=== PATIENT | female | born 1940 | race Caucasian/White ===

== ENCOUNTER → 2019-07-18 10:02 | Outpatient (BNVA) | payer MEDICARE, OTHER, SELFPAY | PROVIDERS: Family Provider Internal Medicine; Visit Provider Orthopaedic Surgery | DX: Z96.652 Presence of left artificial knee joint (principal) | CPT/HCPCS: 73560; 73565; L3924 ==

== ENCOUNTER 2019-07-18 15:09 | Outpatient (CLI) | payer MEDICARE, OTHER, SELFPAY | END 2019-07-18 15:10 | disposition home or self-care (01) | LOC: SPT 15:10 | PROVIDERS: Family Provider Internal Medicine; Visit Provider Orthopaedic Surgery | DX: Z76.89 Persons encountering health services in other specified circumstances (principal) | CPT/HCPCS: L3924 ==

== ENCOUNTER 2019-08-13 07:51 | Outpatient (CLI) | payer MEDICARE, OTHER, SELFPAY ==
[2019-08-13 08:25] LABS: Basophils % 0.7 %; Eosinophils # 0.1 10^3/uL (0.0-0.8); Eosinophils % 1.4 %; Hematocrit 40.8 % (37.0-47.0); Hemoglobin 12.9 g/dL (11.5-15.3); Lymphocytes # 1.6 10^3/uL (0.8-4.8); Mean Corpuscular HGB Conc 31.6 g/dL (30.0-36.0); Mean Corpuscular Hemoglobin 29.5 pg (28.0-34.0); Mean Corpuscular Volume 93.4 fL (81-99); Mean Platelet Volume 8.9 fL (7.4-10.4); Monocytes # 0.5 10^3/uL (0.2-0.9); Monocytes % 8.4 %; Neutrophils # 3.4 10^3/uL (1.8-7.7); Neutrophils % 60.8 %; Nucleated Red Blood Cells % 0 %; Platelet Count 365 10^3/cmm (130-400); Red Blood Count 4.37 10^6/uL (4.1-5.3); Red Cell Distribution Width 13.2 % (12.1-15.1); White Blood Count 5.6 10^3/uL (4.0-10.0)
[2019-08-13 08:51] LABS: Aspartate Amino Transferase 21 U/L (0-32); Blood Urea Nitrogen 14 mg/dL (8-23); Ferritin 27 ng/mL (15-150); Iron 84 ug/dL (37-145); Percent Saturation 40.5 % (20-50); Total Iron Binding Capacity 207 mcg/dl; Unsaturated Iron Binding 123 ug/dL (112-347)
== END 2019-08-13 07:52 | disposition home or self-care (01) ==
LOC: LAB 07:55
PROVIDERS: Family Provider Internal Medicine; PCP Internal Medicine; Visit Provider Specialist
DX: G70.00 Myasthenia gravis without (acute) exacerbation (principal); D50.9 Iron deficiency anemia, unspecified
CPT/HCPCS: 36415; 82565; 82728; 83540; 83550; 84450; 84520; 85025

== ENCOUNTER → 2019-08-20 08:02 | Outpatient (BNVA) | payer MEDICARE, OTHER, SELFPAY | PROVIDERS: Family Provider Internal Medicine; PCP Internal Medicine; Visit Provider Specialist | DX: G70.00 Myasthenia gravis without (acute) exacerbation (principal); R29.90 Unspecified symptoms and signs involving the nervous system | CPT/HCPCS: 99213 ==

== ENCOUNTER → 2019-12-31 08:20 | Outpatient (BNVA) | payer MEDICARE, OTHER, SELFPAY | PROVIDERS: Family Provider Internal Medicine; PCP Internal Medicine; Visit Provider Orthopaedic Surgery | DX: M85.862 Other specified disorders of bone density and structure, left lower leg (principal); M85.812 Other specified disorders of bone density and structure, left shoulder; M19.012 Primary osteoarthritis, left shoulder; Z96.612 Presence of left artificial shoulder joint; Z96.652 Presence of left artificial knee joint | CPT/HCPCS: 73030; 73560; 73565 ==

== ENCOUNTER 2020-02-11 07:41 | Outpatient (CLI) | payer MEDICARE, OTHER, SELFPAY ==
[2020-02-11 08:23] LABS: Basophils % 0.4 %; Eosinophils # 0.1 10^3/uL (0.0-0.8); Eosinophils % 1.1 %; Hemoglobin 13.3 g/dL (11.5-15.3); Lymphocytes # 1.3 10^3/uL (0.8-4.8); Mean Corpuscular HGB Conc 31.7 g/dL (30.0-36.0); Mean Corpuscular Hemoglobin 30.2 pg (28.0-34.0); Mean Corpuscular Volume 95.2 fL (81-99); Mean Platelet Volume 9.2 fL (7.4-10.4); Monocytes # 0.3 10^3/uL (0.2-0.9); Monocytes % 6.4 %; Neutrophils # 3.52 10^3/uL (1.8-7.7); Neutrophils % 66.7 %; Nucleated Red Blood Cells % 0 %; Platelet Count 336 10^3/cmm (130-400); Red Blood Count 4.41 10^6/uL (4.1-5.3); Red Cell Distribution Width 13.2 % (12.1-15.1); White Blood Count 5.3 10^3/uL (4.0-10.0)
[2020-02-11 08:57] LABS: Aspartate Amino Transferase 24 U/L (0-32); Blood Urea Nitrogen 18 mg/dL (8-23); Ferritin 31 ng/mL (15-150); Iron 69 ug/dL (37-145)
[2020-02-11 08:59] LABS: Alanine Aminotransferase 14 U/L (0-33); Albumin Level 4.3 g/dL (3.5-5.2); Alkaline Phosphatase 109 IU/L (35-105); Anion Gap 15.2 (5-19); Aspartate Amino Transferase 24 U/L (0-32); Blood Urea Nitrogen 18 mg/dL (8-23); Calcium 9.1 mg/dL (8.5-10.5); Carbon Dioxide 24 mmol/L (22-29); Chloride 105 mmol/L (98-107); Globulin 2.6 g/dL (1.3-4.6); Glucose 113 mg/dL (65-115); Osmolality Calculated 287 mOsm/kg (285-295); Potassium 4.2 mmol/L (3.5-5.1); Sodium 140 mmol/L (136-145); Total Bilirubin 0.4 mg/dL (0.15-1.2); Total Protein 6.9 g/dL (6.6-8.7)
== END 2020-02-11 07:42 | disposition home or self-care (01) ==
LOC: ONCMED 07:44
PROVIDERS: PCP Internal Medicine; Referring Provider Specialist; Visit Provider Internal Medicine Medical Oncology
DX: E83.110 Hereditary hemochromatosis (principal); G70.00 Myasthenia gravis without (acute) exacerbation; D50.9 Iron deficiency anemia, unspecified; E03.9 Hypothyroidism, unspecified; E78.00 Pure hypercholesterolemia, unspecified; I10 Essential (primary) hypertension; I25.10 Atherosclerotic heart disease of native coronary artery without angina pectoris; K21.9 Gastro-esophageal reflux disease without esophagitis
CPT/HCPCS: 36415; 80053; 82565; 82728; 83540; 84450; 84520; 85025

== ENCOUNTER 2020-02-14 05:47 | Outpatient (CLI) | payer MEDICARE, OTHER, SELFPAY ==
--- NOTE | 2020-02-16 16:46 | ONC FU_ITS ---
Dr. Lazo Patient Follow-Up Note Patient: Keysha Kearns Unit #: [id number]: 1940 Dicatated By: Ivan Lazo M.D.Date of Visit:Feb 14, 2020 Onc Med Follow-up/Prog Note Chief Complaint: Hemochromatosis. History of Present Illness: This is an 79 year-old woman with hereditary hemochromatosis. I had seen her initially in June 2007. 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 She was phlebotomized to a ferritin level of under 50. She had been monitored on observation following a phlebotomy in March 2009. She then restarted phlebotomies in November 2013 after her ferritin had abruptly increased to 399 ng/mL. As of 12/08/2016 the transferrin saturation had decreased to 13.3% with ferritin 22.6 ng/mL, and at that point I did stop her phlebotomies again. I had seen her for a follow-up visit on 11/17/2017. At that time she was significantly fatigued. Her transferrin saturation and ferritin were still consistent with iron deficiency, and I did have her start an oral iron supplement. As of 02/14/2016 her hemoglobin is back up to 14.6 g with transferrin saturation 33.2% and ferritin level 20.5 ng/mL, and she then stopped the iron supplement. Her other medical illnesses include hypertension, hypercholesterolemia, hypothyroidism, and GERD. In 2012 she developed severe shortness of breath and on evaluation she was found to have coronary artery disease. She underwent coronary artery bypass surgery and placement of permanent pacemaker. In July 2013 she was diagnosed with myasthenia gravis. She was treated with pyridostigmine and prednisone. She was intolerant of azathioprine. In January 2015 she underwent hemiarthroplasty of the left hip for a traumatic left femoral neck fracture. In June 2016 she was admitted to the hospital with aspiration pneumonia. She required intubation/mechanical ventilation. She was transferred to [facility] where she then underwent plasma exchange for the myasthenia. She eventually did recover. In September, she was seen in the emergency room with bleeding at the site of her PEG tube, which had been removed 3 weeks earlier. It resolved after surgical ligation. She then stopped taking aspirin. She continued CellCept for the myasthenia. INTERIM HISTORY: On 07/13/2018 she underwent left reverse total shoulder arthroplasty. She tolerated the procedure well. At her follow-up visit in July 2018, her transferrin saturation and ferritin levels remained in target range, and she continued on observation/expectant management. She is seen for a scheduled visit. She has been feeling pretty good generally. She walks every day in the morning, and she does housework. ECOG score is 1. She has good appetite. She has no fever or night sweats. She sometimes has shortness of breath. She has occasional cough which comes and goes. She says she has a little bit of chest pain at times. She has no GI or complaints. She has joint pain, mainly in the hips and legs. She does not complain of headache or dizziness. She has no focal neurologic symptoms. Medications: Acetaminophen 2 Tablet (of 325 mg) Oral PRN, AmLODIPine Besylate 1 (10 mg) Tablet Oral daily, Brimonidine Tartrate 1 drop(s) (of 0.2 %) Solution Ophthalmic b.i.d., Calcium 600/Vitamin D 1 (600-400 mg - Units) Tablet Oral daily, CellCept 2 (500 mg) Capsule Oral b.i.d., Furosemide 1 Tablet (of 20 mg) Oral daily PRN, Levothyroxine Sodium 25 mcg - Take 1 Tablet Oral daily, Metoprolol Tartrate 1 (25 mg) Tablet Oral b.i.d., Multivitamins 1 Capsule Oral daily, Potassium Chloride ER 1 Tablet (of 20 meq) Tablet, controlled release Oral daily PRN, Pravastatin Sodium 1 (80 mg) Tablet Oral daily, PriLOSEC 2 Tablet (of 20 mg) Oral every am, Singulair 1 (10 mg) Tablet Oral PRN Allergies: No Known Allergies. Review of Systems: Constitutional - She has been feeling good. She exercises daily and is able to do light house work. Her appetite is good and her weight is up about 4 pounds from last years visit. No fever, night sweats, or hot flashes. ECOG score is 1, ENMT - No sinus congestion/drainage. No mouth sores. No sore throat or difficulty swallowing, Hematologic/Lymphatic - No abnormal bruising or bleeding, Respiratory - She has occasional shortness of breath. She has an intermittent cough. No pleuritic pain or hemoptysis. She uses a CPAP at night, Cardiovascular - No angina pain. No palpitations, Gastrointestinal - No nausea or vomiting. No heartburn or acid reflux. No diarrhea or constipation. No blood in the stool or black stools, Genitourinary (F) - No dysuria or hematuria. No urinary frequency. No urgency or incontinence, Musculoskeletal - She has some arthritis pain in her hips and legs, Integumentary - No skin complications, Neurologic - No headache or dizziness. No numbness or tingling. No other focal neurologic symptoms, Psychiatric - No anxiety or depression. No insomnia. Vital Signs: Performed on Feb 14, 2020 10:49 Height - 62.00 in Weight - 171.0 lbs (HIGH) BSA - 1.79 sq.m BMI - 31.28 (HIGH) Temperature - 98.2 F (LOW) Pulse - 82 /min Respiration - 18 /min BP - 118/63 mm(hg) O2 Sat - 98 % Pain - 0 Fatigue - 2 Physical Examination: Constitutional - She looks pretty good generally, Eyes - Sclerae nonicteric. Conjunctivae clear, ENMT - No lesions noted in the oral cavity, Hematologic/Lymphatic - No cervical, clavicular, or axillary adenopathy, Respiratory - Lungs are clear with good air movement bilaterally, Cardiovascular - Heart rhythm is regular. There is no murmur, gallop, or rub noted, Abdomen - Soft. Liver and spleen are not enlarged. There is no abdominal mass or ascites noted and there is no inguinal adenopathy, Extremities - No edema, Neurologic - No focal neurologic deficits noted. Lab/Imaging: CBC shows hemoglobin 13.3 g, white blood cell count 5300, and platelet count 336,000. Comprehensive metabolic profile is unremarkable except for a minimally elevated alkaline phosphatase of 109/105 IU/L. Her serum iron is normal at 69 mcg/dL. The transferrin saturation was not reported. The ferritin level is in target range at 31 ng/mL. Impression: 1. Patient with hereditary hemochromatosis, confirmed by an HFE gene study to be homozygous for the C282Y mutation. She has been managed with phlebotomy. 2. In July 2013 she was found to have myasthenia gravis. She has been on immunosuppressive therapy. Her other medical illnesses include: 3. Hypertension. 4. Hyperlipidemia. 5. Coronary artery disease. 6. Hypothyroidism. 7. GERD. Her clinical course was further complicated by an episode of aspiration pneumonia in June 2016, requiring intubation/mechanical ventilation. She did show gradual recovery. As of her follow-up visit in November 2016 her transferrin saturation had declined to 13% with ferritin down to 22 ng/mL. At that point I had opted to just follow her on observation/expectant management. As of her follow-up visit in October 2017, she was more fatigued. Her transferrin saturation and ferritin were still in iron deficiency range, I did have her start an oral iron supplement. As of October 2017 she had actually become mildly anemic, and I did have her start on oral iron supplement. By January 2018 her hemoglobin was back up to 14.6 g with transferrin saturation 33.2% and ferritin 20.5 ng/mL. She has since then been followed on observation/expectant management. On 07/13/2017 show underwent left reverse total shoulder arthroplasty. She tolerated the procedure well, and she had an uneventful recovery. She then continued on observation/expectant management for the hemochromatosis. Thus far during follow-up her serum iron and serum ferritin levels have remained in target range, and her overall clinical status has remained stable. Plan: She remains on observation/expectant management. I will continue to recheck her CBC, serum iron studies, and ferritin in 6 months, I will just see her again in 1 year. Signed By: Ivan Lazo M.D. <<Signature on File>>
== END 2020-02-14 05:48 | disposition home or self-care (01) ==
PROVIDERS: PCP Internal Medicine; Visit Provider Internal Medicine Medical Oncology
DX: E83.110 Hereditary hemochromatosis (principal); G70.00 Myasthenia gravis without (acute) exacerbation; Z79.899 Other long term (current) drug therapy; I10 Essential (primary) hypertension; E78.5 Hyperlipidemia, unspecified; I25.10 Atherosclerotic heart disease of native coronary artery without angina pectoris; E03.9 Hypothyroidism, unspecified; K21.9 Gastro-esophageal reflux disease without esophagitis
CPT/HCPCS: G0463

== ENCOUNTER → 2020-02-19 08:17 | Outpatient (BNVA) | payer MEDICARE, OTHER, SELFPAY | PROVIDERS: PCP Internal Medicine; Visit Provider Specialist | DX: G70.00 Myasthenia gravis without (acute) exacerbation (principal); R29.90 Unspecified symptoms and signs involving the nervous system; G47.33 Obstructive sleep apnea (adult) (pediatric) | CPT/HCPCS: 99213 ==

== ENCOUNTER 2020-04-11 07:33 | Outpatient (CLI) | payer MEDICARE, OTHER, SELFPAY ==
--- NOTE | 2020-04-11 08:00 | MM_ITS ---
WS: [id number] Bilateral screening digital mammogram, 04/11/2020 Clinical Data: Routine Comparison: 02/05/2014, 11/27/2012, 11/04/2011, 09/15/2010, 08/27/2010, 06/06/2008, 05/26/2007. Findings: The breast parenchymal pattern shows fat replacement. No spiculated masses or clustered calcification s are seen. There are no secondary signs of carcinoma. MM/[id number] Impression: 1. Negative bilateral mammogram unchanged. 2. Recommend annual screening mammograms. BIRADS: 1-Negative FOLLOW UP: 1 Year Follow-up The CAD return checker was used.
== END 2020-04-11 07:34 | disposition home or self-care (01) ==
LOC: RADSHAW 07:36
PROVIDERS: PCP Internal Medicine; Visit Provider Specialist
DX: Z12.31 Encounter for screening mammogram for malignant neoplasm of breast (principal)
CPT/HCPCS: 77067

== ENCOUNTER → 2020-05-09 08:55 | Outpatient (BNVA) | payer MEDICARE, OTHER, SELFPAY | PROVIDERS: PCP Internal Medicine; Visit Provider Internal Medicine Cardiovascular Disease | DX: Z11.59 Encounter for screening for other viral diseases (principal); I48.11 Longstanding persistent atrial fibrillation; Z95.0 Presence of cardiac pacemaker | CPT/HCPCS: 87635 ==

== ENCOUNTER 2020-05-12 08:38 | Observation (INO) | payer MEDICARE, OTHER, SELFPAY ==
[2020-05-09 08:42] LABS: Basophils # 0.1 10^3/uL (0.0-0.1); Basophils % 0.9 %; Eosinophils # 0.1 10^3/uL (0.0-0.8); Eosinophils % 0.9 %; Hematocrit 43.3 % (37.0-47.0); Hemoglobin 13.8 g/dL (11.5-15.3); Lymphocytes # 1.8 10^3/uL (0.8-4.8); Lymphocytes % 33.4 %; Mean Corpuscular HGB Conc 31.9 g/dL (30.0-36.0); Mean Corpuscular Hemoglobin 30.2 pg (28.0-34.0); Mean Corpuscular Volume 94.7 fL (81-99); Mean Platelet Volume 9.5 fL (7.4-10.4); Monocytes # 0.5 10^3/uL (0.2-0.9); Monocytes % 9.1 %; Neutrophils # 3.02 10^3/uL (1.8-7.7); Neutrophils % 55.2 %; Nucleated Red Blood Cells % 0 %; Platelet Count 325 10^3/cmm (130-400); Red Blood Count 4.57 10^6/uL (4.1-5.3); Red Cell Distribution Width 13.2 % (12.1-15.1); White Blood Count 5.5 10^3/uL (4.0-10.0)
[2020-05-09 09:02] LABS: Anion Gap 16.8 (5-19); Blood Urea Nitrogen 20 mg/dL (8-23); Calcium 9.3 mg/dL (8.5-10.5); Carbon Dioxide 22 mmol/L (22-29); Chloride 106 mmol/L (98-107); Glucose 114 mg/dL (65-115); Osmolality Calculated 295 mOsm/kg (285-295); Potassium 3.8 mmol/L (3.5-5.1); Sodium 141 mmol/L (136-145)
[2020-05-09 09:18] LABS: INR 0.88 (0.83-1.21); Prothrombin Time (Patient) 12.2 Seconds (12.0-15.1)
[2020-05-12] VITALS (10 sets, daily range): BP systolic 98–146; BP diastolic 47–79; PULSE 65–71; RESP 14–25; TEMP 36.6–36.8; O2SAT 94–97; BMI 31.1
--- NOTE | 2020-05-12 07:04 | W.PM.OPSUD ---
Surgery/Procedure H&P Update DATE OF PROCEDURE: May 12, 2020 DATE H&P PERFORMED: 05/05/20 H&P UPDATE INFORMATION: I have reviewed H&P completed within last 30 days, I have examined patient prior to procedure and No changes to prior documentation PREOP DIAGNOSIS: Pacemaker TIFFANI PRIMARY INDICATION FOR PROCEDURE: Pacemaker TIFFANI PLANNED PROCEDURE: Operation Date: 05/12/20 07:00 Proposed Procedures p Pacemaker Generator Change 05400/Z45.01(Not Applicable) - Yair Odom MD PATIENT REASSESSED PRIOR TO SEDATION, WITH NO CHANGE NOTED: Yes PHYSICAL EXAM: alert, oriented x 3, clear to auscultation bilaterally and regular rate & rhythm AIRWAY EVAL/ANESTHESIA PLAN: normal airway, see other exam findings, ASA III, Monitored Anesthesia, Local Anesthesia, Risks, benefits & alternatives of sedation and/or procedure discussed and Patient agrees to continue as planned
--- NOTE | 2020-05-12 08:09 | PM.OP ---
Operative Report Date of procedure: May 12, 2020 Pre-op Diagnosis: Pacemaker TIFFANI Procedure: PROCEDURE: PACEMAKER REVISION PREOPERATIVE DIAGNOSIS: Pacemaker elective replacement indication. POSTOPERATIVE DIAGNOSIS: Pacemaker elective replacement indication. ESTIMATED BLOOD LOSS:none. COMPLICATIONS: None. BRIEF HISTORY: The patient is baseline artifacts, need to [id number] white female who had a permanent pacemaker implantation for symptomatic bradycardia. The patient was found to have elective replacement indication, during routine office followup evaluation. For further management of patient's condition for the symptomatic bradycardia, the patient required a pacemaker revision. Patient required a dual-chamber pacemaker for symptom relief and the need for AV synchrony The procedure was explained to the patient in detail with the risks and benefits. The risks of bleeding, hematoma, vascular injury, infection and other concomitant complications were explained in detail, which the patient understood well and consented to proceed. PROCEDURES PERFORMED: 1. Explantation of the old pacemaker generator. 2. Implantation of the new generator. The patient brought to the Cardiac Dry Starch Supervisor. The left side of the neck and the subclavian area were cleaned and draped in a sterile fashion. 1% Xylocaine was used for local anesthetic agent. A 2 inch long incision was made just below the previous pacemaker scar. By sharp and blunt dissection, the pacemaker pocket was accessed. The old generator was delivered from the pocket. The generator was detached from the lead. The new Medtronic generator was attached to the lead. The pacemaker pocket was copiously irrigated with vancomycin solution. Complete hemostasis was achieved. The lead was positioned behind the generator and the generator was attached to the pectoralis fascia by suturing with 0 Surgilon. Sponge counts were confirmed. The pacemaker pocket was closed in layers. Skin was approximated using 4-0 Vicryl. EXPLANTED DEVICE: Pacemaker Generator: Brand: Sensia Model number: [id number]. Serial number: [id number]. Date of implant: 11/30/2011 IMPLANTED DEVICES: Ventricular Lead: Date of implantation: 11/30/2011 Model number: [id number] Serial number: [id number] Make: Medtronic. Atrial lead Date of implantation: 11/30/2011 Model number: [id number] Serial number: [id number] Make: Medtronic. Implanted Generator: Date of implantation : 05/12/2020 Brand: AzureXT DR NAOMI Carrizales. Model number: [id number] Serial number: [id number] Make: Medtronic Stimulation Threshold: The ventricular sensing was not obtained because the patient is still dependent. Ventricular lead impedance was 380 ohms and the pacing threshold was 1.0 volts at 0.4 milliseconds. The atrial sensing was 2.5 millivolts. Atrial lead impedance was 513 ohms and the pacing threshold was 0.5 volts at 0.4 milliseconds. The pacemaker was set for DDDR mode with an upper rate of 130 and a lower rate of 60. A pressure dressing was applied over the pacemaker site. The patient was transferred back to medical floor in stable condition. Sponge counts were correct.
--- NOTE | 2020-05-12 09:33 | PC.CHAP ---
Pastoral Care Encounter/Spiritual Assessment Type of Contact [] Declined buggy operator visit [] Patient/Family/Request visit [] Outpatient visit [] Follow-up visit [] Physician referral [] Code/Alert [x] Routine visit [] Staff referral [] Actively dying [] Patient sleeping [] Family support [] [] Out of room [] Palliative care [] [] Receiving care in room [] Pre-surgical visit [] Trauma [] Long length of stay [] ICU visit [] Other: Relational/Emotional Strength [] Patient feels connected with others/family/visitors/staff [] Distress [] Loneliness/isolation [] Abandonment Spirituality of Patient [] Person of Ina [] Attends Jewish of their Ina [] Believes in Prayer [] Reads Bible or Sikh materials [] There are Spiritual issues to be addressed Elevator Technician Interventions [x] Prayer [x] Active listening [x] Non-anxious presence [x] Spiritual/emotional support [] Crisis/trauma care [] Spiritual counseling [] Bereavement support [] Provided bereavement packet [] Provided Bible/devotional materials [] Provided toy/stuffed animal, coloring book to patient or family member [] Provided Communion [] Anointing/[place] [] Salvation [x] Completed spiritual assessment [] Other: Impact on Illness or Injury [] Angry [] Fearful [] Anxious [] Often cries [] Exhaustion [] Unable to work [] Unable to attend moravian [] Unable to walk/stand [] Unable to read [] Unable to drive [] Unable to eat/drink [] Unable to sleep [] Unable to be with family [] Patient intubated [] Other: Summary battery replacement... feeling good Time spent with patient 10 min
--- NOTE | 2020-05-12 09:35 | PC.NURSE ---
Patient states she has already had her eye drops and her thyroid medicine this morning
[2020-05-12] MEDS: metoprolol tartrate 25 mg Tablet PO (17:25)
--- NOTE | 2020-05-12 19:27 | PC.NURSE ---
Rounding: PAtient up to chair alert and oriented arm in sling. Denies any needs at this time.
[2020-05-12] MEDS: atorvastatin 40 mg Tablet 20 MG PO (20:53)
[2020-05-13 05:21] VITALS: BP 149/65; PULSE 71; RESP 20; TEMP 36.6; O2SAT 98
--- NOTE | 2020-05-13 06:00 | ECG_ITS ---
[facility] Test Date: 2020-05-13 Pat Name: Keysha Kearns Department: Room: 112 Gender: Female Reconciliation Manager: : 1940 Requested By: Yair Odom Order Number: [id number] Gulshan MD: Vivian Kennedy M.D. Measurements Intervals [place] Rate: 69 P: 168 AL: 182 QRS: -4 QRSD: 188 T: 70 QT: 476 QTc: 513 Interpretive Statements ELECTRONIC ATRIAL PACEMAKER ELECTRONIC VENTRICULAR PACEMAKER Compared to ECG 05/15/2019 10:02:17 ST (T wave) deviation now present Myocardial infarct finding now present Electronically Signed On 05-13-2020 21:54:45 CUB REPORTER by Vivian Kennedy M.D. [id number]
[2020-05-13] MEDS: multivitamin therapeutic Tablet 1 TAB PO (07:44)
[2020-05-13] MEDS: levothyroxine 25 mcg Tablet PO (07:44)
[2020-05-13] MEDS: amlodipine 10 mg Tablet PO (07:44)
[2020-05-13] MEDS: metoprolol tartrate 25 mg Tablet PO (07:45)
[2020-05-13] MEDS: pantoprazole DR 40 mg Tablet PO (07:45)
[2020-05-13 08:00] VITALS: BP 122/54; PULSE 71; RESP 28; TEMP 36.6; O2SAT 97
[2020-05-13 09:05] VITALS: BP 122/54; PULSE 71; RESP 28; TEMP 36.6; O2SAT 97
--- NOTE | 2020-05-13 09:06 | PC.NURSE ---
Discharge instructions provided and discussed Including Follow-up appts, new medications, Post pacemaker care instructions. Pt declined to review sleep apnea and HTN carenotes at this time. All questions answered. Pacemker booklet and card given to pt. Pt discharge.
--- NOTE | 2020-05-13 09:18 | PC.NURSE ---
Pt to main entrance via W/C. All belongings with pt.
== END 2020-05-13 09:18 | disposition home or self-care (01) ==
LOC: CSU 08:38
PROVIDERS: Admitting Provider Internal Medicine Cardiovascular Disease; PCP Internal Medicine; Visit Provider Internal Medicine Cardiovascular Disease
DX: Z45.010 Encounter for checking and testing of cardiac pacemaker pulse generator [battery] (principal); I10 Essential (primary) hypertension; E78.2 Mixed hyperlipidemia; G47.33 Obstructive sleep apnea (adult) (pediatric); I25.10 Atherosclerotic heart disease of native coronary artery without angina pectoris
CPT/HCPCS: 12345; 33213; 36415; 80048; 85025; 85610; 86850; 86900; 93005; 96365; 97165; C1769; C1786; G0378; J0690; J2250; J3010; J7050; J7517

== ENCOUNTER 2020-08-18 08:16 | Outpatient (CLI) | payer MEDICARE, OTHER, SELFPAY ==
[2020-08-18 09:02] LABS: Basophils % 0.9 %; Eosinophils # 0.1 10^3/uL (0.0-0.8); Eosinophils % 1.2 %; Hematocrit 40.8 % (37.0-47.0); Hemoglobin 12.9 g/dL (11.5-15.3); Lymphocytes # 1.2 10^3/uL (0.8-4.8); Lymphocytes % 28.6 %; Mean Corpuscular HGB Conc 31.6 g/dL (30.0-36.0); Mean Corpuscular Hemoglobin 29.8 pg (28.0-34.0); Mean Corpuscular Volume 94.2 fL (81-99); Mean Platelet Volume 8.9 fL (7.4-10.4); Monocytes # 0.4 10^3/uL (0.2-0.9); Monocytes % 8.4 %; Neutrophils # 2.58 10^3/uL (1.8-7.7); Neutrophils % 60.4 %; Nucleated Red Blood Cells % 0 %; Platelet Count 322 10^3/cmm (130-400); Red Blood Count 4.33 10^6/uL (4.1-5.3); Red Cell Distribution Width 13.1 % (12.1-15.1); White Blood Count 4.3 10^3/uL (4.0-10.0)
[2020-08-18 09:18] LABS: Aspartate Amino Transferase 19 U/L (0-32); Blood Urea Nitrogen 11 mg/dL (8-23); Ferritin 26 ng/mL (15-150); Iron 72 ug/dL (37-145); Percent Saturation 34.4 % (20-50); Total Iron Binding Capacity 209 mcg/dl; Unsaturated Iron Binding 137 ug/dL (112-347)
== END 2020-08-18 08:17 | disposition home or self-care (01) ==
PROVIDERS: Absent Provider Specialist; PCP Internal Medicine; Visit Provider Internal Medicine Medical Oncology
DX: E83.110 Hereditary hemochromatosis (principal); G70.00 Myasthenia gravis without (acute) exacerbation; I48.11 Longstanding persistent atrial fibrillation
CPT/HCPCS: 82565; 82728; 83540; 83550; 84450; 84520; 85025

== ENCOUNTER → 2020-08-20 08:03 | Outpatient (BNVA) | payer MEDICARE, OTHER, SELFPAY | PROVIDERS: PCP Internal Medicine; Visit Provider Specialist | DX: G70.00 Myasthenia gravis without (acute) exacerbation (principal); D64.9 Anemia, unspecified | CPT/HCPCS: 99213; 99214 ==

== ENCOUNTER 2020-12-26 08:05 | Outpatient (CLI) | payer MEDICARE, OTHER, SELFPAY ==
[2020-12-26 08:47] LABS: Basophils % 0.8 %; Eosinophils # 0.1 10^3/uL (0.0-0.8); Eosinophils % 1.2 %; Hematocrit 41.5 % (37.0-47.0); Hemoglobin 13.2 g/dL (11.5-15.3); Lymphocytes # 1.4 10^3/uL (0.8-4.8); Lymphocytes % 27.2 %; Mean Corpuscular HGB Conc 31.8 g/dL (30.0-36.0); Mean Corpuscular Hemoglobin 29.5 pg (28.0-34.0); Mean Corpuscular Volume 92.8 fL (81-99); Mean Platelet Volume 9.2 fL (7.4-10.4); Monocytes # 0.4 10^3/uL (0.2-0.9); Monocytes % 6.9 %; Neutrophils # 3.19 10^3/uL (1.8-7.7); Neutrophils % 63.3 %; Nucleated Red Blood Cells % 0 %; Platelet Count 334 10^3/cmm (130-400); Red Blood Count 4.47 10^6/uL (4.1-5.3); Red Cell Distribution Width 13.1 % (12.1-15.1)
[2020-12-26 09:05] LABS: Aspartate Amino Transferase 19 U/L (0-32); Blood Urea Nitrogen 17 mg/dL (8-23); Ferritin 23 ng/mL (15-150); Iron 84 ug/dL (37-145); Percent Saturation 37.8 % (20-50); Total Iron Binding Capacity 222 mcg/dl; Unsaturated Iron Binding 138 ug/dL (112-347)
== END 2020-12-26 08:06 | disposition home or self-care (01) ==
LOC: LAB 08:12
PROVIDERS: PCP Internal Medicine; Visit Provider Specialist
DX: D64.9 Anemia, unspecified (principal); G70.00 Myasthenia gravis without (acute) exacerbation; I48.11 Longstanding persistent atrial fibrillation
CPT/HCPCS: 36415; 82565; 82728; 83540; 83550; 84450; 84520; 85025

== ENCOUNTER 2021-02-16 09:52 | Outpatient (CLI) | payer MEDICARE, OTHER, SELFPAY ==
[2021-02-16 11:00] LABS: Basophils # 0.1 10^3/uL (0.0-0.1); Basophils % 0.7 %; Eosinophils # 0.1 10^3/uL (0.0-0.8); Hematocrit 43.1 % (37.0-47.0); Hemoglobin 13.5 g/dL (11.5-15.3); Lymphocytes # 1.6 10^3/uL (0.8-4.8); Mean Corpuscular HGB Conc 31.3 g/dL (30.0-36.0); Mean Corpuscular Hemoglobin 29.5 pg (28.0-34.0); Mean Corpuscular Volume 94.3 fl (81-99); Monocytes # 0.5 10^3/uL (0.2-0.9); Neutrophils # 4.49 10^3/uL (1.8-7.7); Neutrophils % 66.6 %; Nucleated Red Blood Cells % 0 %; Platelet Count 349 10^3/cmm (130-400); Red Blood Count 4.57 10^6/uL (4.1-5.3); Red Cell Distribution Width 13.1 % (12.1-15.1); White Blood Count 6.8 10^3/uL (4.0-10.0)
[2021-02-16 11:31] LABS: Alanine Aminotransferase 11 U/L (0-33); Albumin Level 4.1 g/dL (3.5-5.2); Alkaline Phosphatase 100 IU/L (35-105); Anion Gap 14.7 (5-19); Aspartate Amino Transferase 18 U/L (0-32); Blood Urea Nitrogen 13 mg/dL (8-23); Calcium 8.7 mg/dL (8.5-10.5); Carbon Dioxide 24 mmol/L (22-29); Chloride 105 mmol/L (98-107); Ferritin 19 ng/mL (15-150); Globulin 2.3 g/dL (1.3-4.6); Glucose 102 mg/dL (65-115); Iron 66 ug/dL (37-145); Osmolality Calculated 290 mOsm/kg (285-295); Percent Saturation 31.2 % (20-50); Potassium 3.7 mmol/L (3.5-5.1); Sodium 140 mmol/L (136-145); Total Bilirubin 0.3 mg/dL (0.15-1.2); Total Iron Binding Capacity 211 mcg/dl; Total Protein 6.4 g/dL (6.6-8.7); Unsaturated Iron Binding 145 ug/dL (112-347)
== END 2021-02-16 09:53 | disposition home or self-care (01) ==
LOC: ONCMED 09:58
PROVIDERS: PCP Internal Medicine; Visit Provider Internal Medicine Medical Oncology
DX: E83.110 Hereditary hemochromatosis (principal); Z79.899 Other long term (current) drug therapy
CPT/HCPCS: 36415; 80053; 82728; 83540; 83550; 85025

== ENCOUNTER → 2021-02-18 07:51 | Outpatient (BNVA) | payer MEDICARE, OTHER, SELFPAY | PROVIDERS: PCP Internal Medicine; Visit Provider Specialist | DX: G70.00 Myasthenia gravis without (acute) exacerbation (principal); I48.20 Chronic atrial fibrillation, unspecified; M19.90 Unspecified osteoarthritis, unspecified site | CPT/HCPCS: 99214 ==

== ENCOUNTER 2021-02-25 05:49 | Outpatient (CLI) | payer MEDICARE, OTHER, SELFPAY ==
--- NOTE | 2021-02-25 17:55 | ONC FU_ITS ---
Dr. Lazo Patient Follow-Up Note Patient: Keysha Kearns Unit #: [id number]: 1940 Dicatated By: Ivan Lazo M.D.Date of Visit:Feb 25, 2021 Onc Med Follow-up/Prog Note Chief Complaint: Hemochromatosis. History of Present Illness: This is an 80 year-old woman with hereditary hemochromatosis. I had seen her initially in June 2007. 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 She was phlebotomized to a ferritin level of under 50. She had been monitored on observation following a phlebotomy in March 2009. She then restarted phlebotomies in November 2013 after her ferritin had abruptly increased to 399 ng/mL. As of 12/08/2016 the transferrin saturation had decreased to 13.3% with ferritin 22.6 ng/mL, and at that point I did stop her phlebotomies again. I had seen her for a follow-up visit on 11/17/2017. At that time she was significantly fatigued. Her transferrin saturation and ferritin were still consistent with iron deficiency, and I did have her start an oral iron supplement. As of 02/14/2016 her hemoglobin is back up to 14.6 g with transferrin saturation 33.2% and ferritin level 20.5 ng/mL, and she then stopped the iron supplement. At her follow-up visit in July 2018, her transferrin saturation and ferritin levels remained in target range, and she then continued on observation/expectant management. Her other medical illnesses include hypertension, hypercholesterolemia, hypothyroidism, and GERD. In 2012 she developed severe shortness of breath and on evaluation she was found to have coronary artery disease. She underwent coronary artery bypass surgery and placement of permanent pacemaker. In July 2013 she was diagnosed with myasthenia gravis. She was treated with pyridostigmine and prednisone. She was intolerant of azathioprine. In January 2015 she underwent hemiarthroplasty of the left hip for a traumatic left femoral neck fracture. In June 2016 she was admitted to the hospital with aspiration pneumonia. She required intubation/mechanical ventilation. She was transferred to [facility] where she then underwent plasma exchange for the myasthenia. She eventually did recover. She continued treatment with CellCept for the myasthenia. On 07/13/2018 she underwent left reverse total shoulder arthroplasty. She tolerated the procedure well. INTERIM HISTORY: She is seen for a scheduled visit. She has been feeling pretty good generally. Her energy is fair. She is doing light work. ECOG score is 1. She has good appetite. She has no fever or night sweats. She has not had sore mouth or throat and she has no difficulty swallowing. Her breathing also is fair. She is on CPAP. She has had some chronic cough. She does not complain of chest pain. She has no GI or complaints. She does have some lower back pain and she sometimes has joint pain. It is tolerable. She does not complain of headache or dizziness. She has no numbness/paresthesia or other focal neurologic symptoms. Medications: Acetaminophen 2 Tablet (of 325 mg) Oral PRN, AmLODIPine Besylate 1 (10 mg) Tablet Oral daily, Brimonidine Tartrate 1 drop(s) (of 0.2 %) Solution Ophthalmic b.i.d., Calcium 600/Vitamin D 1 (600-400 mg - Units) Tablet Oral daily, CellCept 2 (500 mg) Capsule Oral b.i.d., Furosemide 1 Tablet (of 20 mg) Oral daily PRN, Levothyroxine Sodium 25 mcg - Take 1 Tablet Oral daily, Metoprolol Tartrate 1 (25 mg) Tablet Oral b.i.d., Multivitamins 1 Capsule Oral daily, Potassium Chloride ER 1 Tablet (of 20 meq) Tablet, controlled release Oral daily PRN, Pravastatin Sodium 1 (80 mg) Tablet Oral daily, PriLOSEC 2 Tablet (of 20 mg) Oral every am, Singulair 1 (10 mg) Tablet Oral PRN Allergies: No Known Allergies. Vital Signs: Performed on Feb 25, 2021 14:01 Height - 62.00 in Weight - 180.8 lbs (HIGH) BSA - 1.83 sq.m BMI - 33.07 (HIGH) Temperature - 97.8 F (LOW) Pulse - 92 /min Respiration - 18 /min BP - 123/69 mm(hg) O2 Sat - 95 % (LOW) Pain - 0 Fatigue - 0 Physical Examination: Constitutional - She looks pretty good generally, Eyes - Sclerae nonicteric. Conjunctivae clear, ENMT - No lesions noted in the oral cavity, Hematologic/Lymphatic - No cervical, clavicular, or axillary adenopathy, Respiratory - Lungs are clear with good air movement bilaterally, Cardiovascular - Heart rhythm is regular. There is no murmur, gallop, or rub noted, Abdomen - Soft. Liver and spleen are not enlarged. There is no abdominal mass or ascites noted and there is no inguinal adenopathy, Extremities - No edema, Neurologic - No focal neurologic deficits noted. Lab/Imaging: Test performed on Feb 16, 2021 10:23 Ferritin 19 ng/mL Iron 66 mcg/dL Sodium 140 mmol/L Iron Binding Capacity (TIBC) 211 mcg/dl Potassium 3.7 mmol/L % Iron Saturation 31.2 % Chloride 105 mmol/L CO2 24 mmol/L UIBC 145 mcg/dL Anion Gap 14.7 BUN 13 mg/dL Creatinine 0.7 mg/dL Cr Clearance (Est) 77.1800 mL/min Glucose 102 mg/dL Osmolality - Calculated 290 mOsm/kg Calcium 8.7 mg/dL Protein, Total 6.4 g/dL Albumin 4.1 g/dL Globulin 2.3 g/dL Bilirubin, Total 0.3 mg/dL ALT (SGPT) 11 U/L AST (SGOT) 18 U/L Alkaline Phosphatase 100 IU/L WBC 6.8 10 3/uL RBC 4.57 10 6/uL HGB 13.5 g/dL HCT 43.1 % MCV 94.3 fl MCH 29.5 pg MCHC 31.3 g/dL RDW 13.1 % Platelet Count 349 10 3/cmm MPV 9.0 fL Neutrophils 4.49 10 3/uL Lymphocytes 1.6 10 3/uL Monocytes 0.5 10 3/uL Eosinophils 0.1 10 3/uL Basophils 0.1 10 3/uL Neutrophil % 66.6 % Lymphocyte % 23.0 % Monocyte % 8.0 % Eosinophil % 1.0 % Basophils % 0.7 % NRBC % 0 % Problem List: 1. Hereditary hemochromatosis. 2. In July 2013 she was found to have myasthenia gravis. She has been on immunosuppressive therapy. 3. Hypertension. 4. Hyperlipidemia. 5. Coronary artery disease. 6. Hypothyroidism. 7. GERD. Problems Addressed with this Encounter and Plan: Patient with hereditary hemochromatosis. 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 She initially had been managed with phlebotomy. As of her follow-up visit in November 2016 her transferrin saturation had declined to 13% with ferritin down to 22 ng/mL. At that point I had stopped her phlebotomies. As of October 2017 she had actually become mildly anemic, and I did have her start on oral iron supplement. By January 2018 her hemoglobin was back up to 14.6 g with transferrin saturation 33.2% and ferritin 20.5 ng/mL. She was then followed on observation/expectant management. During follow-up she has required some additional orthopedic surgeries, but her overall clinical status has remained stable, and her transferrin saturation and ferritin have remained in target range. As such, she continues on expectant management. She will have repeat laboratory studies in 6 months to include CBC, comprehensive metabolic profile, TIBC and ferritin. I will see her again in 1 year. Signed By: Ivan Lazo M.D. <<Signature on File>>
== END 2021-02-25 05:50 | disposition home or self-care (01) ==
PROVIDERS: PCP Internal Medicine; Visit Provider Internal Medicine Medical Oncology
DX: E83.110 Hereditary hemochromatosis (principal); Z79.899 Other long term (current) drug therapy
CPT/HCPCS: 99214

== ENCOUNTER → 2021-05-06 14:48 | Outpatient (BNVA) | payer MEDICARE, OTHER, SELFPAY | PROVIDERS: PCP Internal Medicine; Visit Provider Specialist | DX: M25.562 Pain in left knee (principal); M25.561 Pain in right knee; Z96.652 Presence of left artificial knee joint | CPT/HCPCS: 73560; 73565 ==

== ENCOUNTER 2021-05-30 04:11 | Emergency (ER) | payer MEDICARE, OTHER, SELFPAY ==
[2021-05-30 04:20] VITALS: BP 140/69; PULSE 88; RESP 18; TEMP 36.4; O2SAT 96; BMI 32.5
--- NOTE | 2021-05-30 04:24 | XRR_ITS ---
PROCEDURE INFORMATION: Exam: XR Chest Exam date and time: 05/30/2021 4:24 AM Age: 80 years old Clinical indication: Chest pressure; Prior surgery; Surgery type: Pacemaker. Bilateral shoulder arthroplasty. ; Patient HX: C/O chest pain. TECHNIQUE: Imaging protocol: XR of the chest. Views: 1 view. Total images: 1 COMPARISON: CR XR knees AP WB w LT lmt ORTH 05/06/2021 2:55 PM FINDINGS: Tubes, catheters and devices: A pacemaker device is present, its leads in appropriate position. Lungs: Trace scar noted in the left lung base. Nonspecific opacity in the right lung base, favoring atelectasis or pneumonia. Pleural spaces: Unremarkable. No pleural effusion. No pneumothorax. Heart/Mediastinum: Unremarkable. No cardiomegaly. Vasculature: Atherosclerosis is evident. Bones/joints: Bilateral shoulder arthroplasties. Diffuse osteopenia noted. XR/XR chest 1V portable [id number] IMPRESSION: 1. Trace scar noted in the left lung base. 2. Nonspecific opacity in the right lung base, favoring atelectasis or pneumonia. Radiation Dose CTDIVOL = (mGy): DLP = (mGy-cm)
--- NOTE | 2021-05-30 04:24 | ECG_ITS ---
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 Measurements Intervals [place] Rate: 69 P: 191 [place]: 176 QRS: -64 QRSD: 186 T: 95 QT: 487 QTc: 525 Interpretive Statements ELECTRONIC ATRIAL PACEMAKER ELECTRONIC VENTRICULAR PACEMAKER Compared to ECG 05/30/2021 04:29:11 No significant changes Electronically Signed On 05-31-2021 13:18:06 SOIL FIELD TECHNICIAN by Hua Chand M.D. [email or web address] nelsonville health centerHoneit, Inc./store/OM/[id number]
[2021-05-30 04:57] LABS: Basophils % 0.3 %; Eosinophils % 0.1 %; Hematocrit 38.3 % (37.0-47.0); Hemoglobin 12.7 g/dL (11.5-15.3); Lymphocytes # 1.6 10^3/uL (0.8-4.8); Lymphocytes % 14.3 %; Mean Corpuscular HGB Conc 33.2 g/dL (30.0-36.0); Mean Corpuscular Hemoglobin 29.6 pg (28.0-34.0); Mean Corpuscular Volume 89.3 fl (81-99); Mean Platelet Volume 10.2 fL (7.4-10.4); Monocytes # 0.6 10^3/uL (0.2-0.9); Monocytes % 5.4 %; Neutrophils # 9.05 10^3/uL (1.8-7.7); Neutrophils % 79.3 %; Nucleated Red Blood Cells % 0 %; Platelet Count 263 10^3/cmm (130-400); Red Blood Count 4.29 10^6/uL (4.1-5.3); Red Cell Distribution Width 13.4 % (12.1-15.1); White Blood Count 11.4 10^3/uL (4.0-10.0)
[2021-05-30 05:18] LABS: Anion Gap 19.3 (5-19); Blood Urea Nitrogen 9 mg/dL (8-23); Calcium 8.3 mg/dL (8.5-10.5); Carbon Dioxide 19 mmol/L (22-29); Chloride 104 mmol/L (98-107); Glucose 117 mg/dL (65-115); Osmolality Calculated 288 mOsm/kg (285-295); Potassium 3.3 mmol/L (3.5-5.1); Sodium 139 mmol/L (136-145); Troponin(5th) Baseline 14 ng/L (0-10)
--- NOTE | 2021-05-30 06:21 | ED_ITS ---
Documented by User: Adam Garcia Quinn, 05/30/21 18:19 HPI - Chest Pain General: Chief Complaint: Chest Pain Stated Complaint: Chest Pain\Has Pace Maker Time Seen by Provider: 05/30/21 04:53 History of Present Illness: HPI narrative: 80-year-old female who had epigastric discomfort last evening. She has a history of a pacemaker. She has no coronary disease history. She presents because the pain was persistent after trying to go to sleep. She became worried that maybe it was a problem with her pacemaker. She is not overly short of breath or nauseated. She did not break out into a sweat. Her battery was replaced last year. MD complaint: other (Epigastric discomfort) Pertinent past history: other Onset (ago): hour(s) Timing of current episode: episodic Prior episodes: Yes Onset: during rest Pain location: epigastric Pain radiation: none Quality: aching Relieving factors: nothing Exacerbating factors: nothing Associated symptoms: Reports no associated symptoms; Deny abdominal pain, diaphoresis, dyspnea or fever(s) Review of Systems Const: Denies: fever(s) or diaphoresis Resp: Denies: dyspnea GI: Denies: abdominal pain PFSH ED PFSH: Medical History (Updated 05/30/21 @ 07:55 by Kia Carvajal MD) ASHD (arteriosclerotic heart disease) Hypertension Mixed hyperlipidemia AIDA (obstructive sleep apnea) Pacemaker Supraventricular tachycardia Thyroid disease Surgical History (Updated 05/08/21 @ 09:51 by Chasidy Govea MD) History of arthroplasty of knee History of bilateral hip replacements Status post reverse arthroplasty of left shoulder Status post total left knee replacement Family History Grandmother Cancer Father Lung disease Grandfather Suicide Other Hypertension Denies family history of Diabetes CAD (coronary artery disease) Clotting disorder Dementia Chronic kidney disease (CKD) Anesthesia complication Bleeding disorder Stroke Social History Alcohol intake: never History of recent travel: No Physical Exam Const: COMMON NORMALS: no acute distress GENERAL APPEARANCE: cooperative ORIENTATION/CONSCIOUSNESS: Yes awake, Yes oriented to person and Yes oriented to place HENMT: COMMON NORMALS: normocephalic HEAD & SCALP: normocephalic Eye: COMMON NORMALS: EOMs intact bilaterally Chest: COMMONS NORMALS: normal inspection of the chest Resp: COMMON NORMALS: normal respiratory effort and clear to auscultation bilaterally AUSCULTATION: clear to auscultation bilaterally Cardio: COMMON NORMALS: regular rate and regular rhythm RATE: regular rate RHYTHM: regular rhythm GI: COMMON NORMALS: Normal to inspection, nondistended, normoactive bowel sounds present and Soft to palpation PALPATION: Yes Soft to palpation and Yes Tenderness to palpation present (GI) (mild epigastric) : COMMON NORMALS: Yes no CVA tenderness BLADDER/KIDNEY EXAM: Yes no CVA tenderness Back/Pelvis: COMMON NORMALS: no CVA tenderness Neuro: SENSORIUM/ORIENTATION: Yes oriented to person and Yes oriented to place Course Vital Signs: Vital signs: Vital Signs Temperature 97.6 F 05/30/21 04:20 Pulse Rate 88 05/30/21 04:20 Respiratory Rate 18 05/30/21 04:20 Blood Pressure 140/69 05/30/21 04:20 Pulse Oximetry 96 05/30/21 04:20 MDM - Chest Pain Lab Data: Labs: Lab Results 05/30/21 05/30/21 05/30/21 04:47 04:47 04:47 WBC 11.4 10^3/uL H 10 ^3/uL (4.0-10.0) RBC 4.29 10^6/uL 10^6 /uL (4.1-5.3) Hgb 12.7 g/dL g/dL (11.5-15.3) Hct 38.3 % % (37.0-47.0) MCV 89.3 fl fl (81-99) MCH 29.6 pg pg (28.0-34.0) MCHC 33.2 g/dL g/dL (30.0-36.0) RDW 13.4 % % (12.1-15.1) Plt Count 263 10^3/cmm 10^3 /cmm (130-400) MPV 10.2 fL fL (7.4-10.4) Neut % (Auto) 79.3 % % Lymph % (Auto) 14.3 % % Tift % (Auto) 5.4 % % Eos % (Auto) 0.1 % % Baso % (Auto) 0.3 % % Neut # (Auto) 9.05 10^3/uL H 10 ^3/uL (1.8-7.7) Lymph # (Auto) 1.6 10^3/uL 10^3/ uL (0.8-4.8) Tift # (Auto) 0.6 10^3/uL 10^3/ uL (0.2-0.9) Eos # (Auto) 0.0 10^3/uL 10^3/ uL (0.0-0.8) Baso # (Auto) 0.0 10^3/uL 10^3/ uL (0.0-0.1) Nucleated RBC % (a uto) 0 % % Nucleated RBCs # 0.0 /100WBC /100W BC Sodium 139 mmol/L mmol/L (136-145) Potassium 3.3 mmol/L L mmol /L (3.5-5.1) Chloride 104 mmol/L mmol/L (98-107) Carbon Dioxide 19 mmol/L L mmol/ L (22-29) Anion Gap 19.3 H (5-19) BUN 9 mg/dL mg/dL (8-23) Creatinine 0.5 mg/dL mg/dL (0.5-0.9) GFR Calculation Not Reportable Glucose 117 mg/dL H mg/dL (65-115) Calculated Osmolal ity 288 mOsm/kg mOsm/ kg (285-295) Calcium 8.3 mg/dL L mg/dL (8.5-10.5) Troponin T Baselin e 14 ng/L H ng/L (0-10) Troponin T 120 Min [place] Troponin T 05/30/21 06:54 WBC RBC Hgb Hct MCV MCH MCHC RDW Plt Count MPV Neut % (Auto) Lymph % (Auto) Tift % (Auto) Eos % (Auto) Baso % (Auto) Neut # (Auto) Lymph # (Auto) Tift # (Auto) Eos # (Auto) Baso # (Auto) Nucleated RBC % (a uto) Nucleated RBCs # Sodium Potassium Chloride Carbon Dioxide Anion Gap BUN Creatinine GFR Calculation Glucose Calculated Osmolal ity Calcium Troponin T Baselin e Troponin T 120 Min [place] 14.88 ng/L H ng/L (0-10) Delta Troponin T 0.88 ABS# ABS# (0-10) Discharge Plan Discharge Patient Disposition: Home Clinical Impression: Chest pain Condition: Stable Prescriptions: No Action amlodipine 10 mg tablet 10 mg PO QDAY RF: 0 potassium chloride 20 mEq tablet extended release 20 meq PO QDAY PRN (Reason: low potassium) RF: 0 brimonidine 0.15 % drops 1 drop ophthalmic (eye) Q8H RF: 0 ICaps AREDS 14,320-226-200 aotp-eh-mejm capsule 1 cap PO ONCE RF: 0 multivitamin Tablet 1 tab PO QAM RF: 0 levothyroxine 25 mcg capsule 25 mcg PO QDAY RF: 0 acetaminophen [Tylenol] 325 mg tablet 650 mg PO Q6H PRN (Reason: Pain) RF: 0 omeprazole 20 mg tablet,delayed release (DR/EC) 40 mg PO QDAY RF: 0 (DME) cmc brace Qty: 1 RF: 0 furosemide [Lasix] 40 mg tablet 40 mg PO DAILY PRN (Reason: diuresis) RF: 0 aspirin [Adult Low Dose Aspirin] 81 mg tablet,delayed release (DR/EC) 81 mg PO DAILY Qty: 90 RF: 3 mycophenolate mofetil 500 mg tablet 1,000 mg PO BID Qty: 120 RF: 5 montelukast [Singulair] 10 mg tablet 10 mg PO DAILY RF: 0 metoprolol tartrate 25 mg tablet See Rx Instructions .ROUTE .COMPLEX Qty: 180 RF: 3 pravastatin 80 mg tablet See Rx Instructions .ROUTE .COMPLEX Qty: 90 RF: 3 Discharge Orders: Discharge ED (Routine); Ordered 05/30/21 Ordered By: Kia Carvajal Referrals: Ivan Mae DO [Primary Care Provider] - Discharge Diet: Advance as tolerated Discharge Activity: Resume usual activity Patient Instructions: Chest Pain (ED) Activity Restrictions/Additional Instructions: Our pillowcase sewer will have you follow-up with a stress test in the next few days. You would be expected to have a phone call with our pillowcase sewer who will put you on the schedule. Please call us if you don't hear from us. Come back to the emergency room if your chest pain worsens, have any fever or chills, worsening shortness of breath, worsening exertional lightheadedness, or any new or concerning complaints. Coding Level of Care Code ED Customer Services Manager for Chg Fwd Documented by User: Kia Carvajal MD 05/30/21 08:01 HPI - Chest Pain General: Chief Complaint: Chest Pain Stated Complaint: Chest Pain\Has Pace Maker Time Seen by Provider: 05/30/21 04:53 PFSH ED PFSH: Medical History (Updated 05/30/21 @ 07:55 by Kia Carvajal MD) ASHD (arteriosclerotic heart disease) Hypertension Mixed hyperlipidemia AIDA (obstructive sleep apnea) Pacemaker Supraventricular tachycardia Thyroid disease Surgical History (Updated 05/08/21 @ 09:51 by Chasidy Govea MD) History of arthroplasty of knee History of bilateral hip replacements Status post reverse arthroplasty of left shoulder Status post total left knee replacement Family History Grandmother Cancer Father Lung disease Grandfather Suicide Other Hypertension Denies family history of Diabetes CAD (coronary artery disease) Clotting disorder Dementia Chronic kidney disease (CKD) Anesthesia complication Bleeding disorder Stroke Social History Alcohol intake: never History of recent travel: No Course Vital Signs: Vital signs: Vital Signs Temperature 97.6 F 05/30/21 04:20 Pulse Rate 88 05/30/21 04:20 Respiratory Rate 18 05/30/21 04:20 Blood Pressure 140/69 05/30/21 04:20 Pulse Oximetry 96 05/30/21 04:20 MDM - Chest Pain MDM Narrative: Medical decision making narrative: Troponin x 2 similar. XR chest negative for any acute findings. Patient is currently chest pain free. At 7:58pm, I performed shared decision-making with patient regarding admission versus discharge today, and patient prefers to be discharged. I ahve discussed given patient's risk factors that she would better off admitted to the hospital. However, we do not do stress test on the weekend and she would have to wait until Tuesday. Upon hearing this, patient elects to go home and do the stress test on Tuesday and Tuesday. I explained the risks of leaving the hospital today including lethal arrythemia, NH, and even . Patient verbalizes understanding of these discussed risk and elect for the alternative of following up earlier next week for stress test on Tuesday or Tuesday and to see Dr. Odom in clinic. Patient verbalizes understanding to return for any worsening symptoms including chest pain, dyspnea, fatigue, arm pain/jaw pain/back pain or any new or concerning issues. Doubt ACS/PE or other emergent causes of chest pain. No suspicion for aortic dissection given no widened mediastinum, 2+ upper extremity pulses, or tearing pain. No suspicion for PE given no pleuritic chest pain, recent immobilization or surgery hemoptysis, or other VTE risk factors. EKG is non-ischemic. XR normal. Disposition: Discharge. Patient counseled regarding diagnostic impression, treatment plan. Patient given ED strict return precautions to return for continuation, worsening, or development of new symptoms. Instructed to f/u w/ PCP regarding symptoms today. Patient verbalized understanding. Lab Data: Labs: Lab Results 05/30/21 05/30/21 05/30/21 04:47 04:47 04:47 WBC 11.4 10^3/uL H 10 ^3/uL (4.0-10.0) RBC 4.29 10^6/uL 10^6 /uL (4.1-5.3) Hgb 12.7 g/dL g/dL (11.5-15.3) Hct 38.3 % % (37.0-47.0) MCV 89.3 fl fl (81-99) MCH 29.6 pg pg (28.0-34.0) MCHC 33.2 g/dL g/dL (30.0-36.0) RDW 13.4 % % (12.1-15.1) Plt Count 263 10^3/cmm 10^3 /cmm (130-400) MPV 10.2 fL fL (7.4-10.4) Neut % (Auto) 79.3 % % Lymph % (Auto) 14.3 % % [place]ift % (Auto) 5.4 % % Eos % (Auto) 0.1 % % Baso % (Auto) 0.3 % % Neut # (Auto) 9.05 10^3/uL H 10 ^3/uL (1.8-7.7) Lymph # (Auto) 1.6 10^3/uL 10^3/ uL (0.8-4.8) Tift # (Auto) 0.6 10^3/uL 10^3/ uL (0.2-0.9) Eos # (Auto) 0.0 10^3/uL 10^3/ uL (0.0-0.8) Baso # (Auto) 0.0 10^3/uL 10^3/ uL (0.0-0.1) Nucleated RBC % (a uto) 0 % % Nucleated RBCs # 0.0 /100WBC /100W BC Sodium 139 mmol/L mmol/L (136-145) Potassium 3.3 mmol/L L mmol /L (3.5-5.1) Chloride 104 mmol/L mmol/L (98-107) Carbon Dioxide 19 mmol/L L mmol/ L (22-29) Anion Gap 19.3 H (5-19) BUN 9 mg/dL mg/dL (8-23) Creatinine 0.5 mg/dL mg/dL (0.5-0.9) GFR Calculation Not Reportable Glucose 117 mg/dL H mg/dL (65-115) Calculated Osmolal ity 288 mOsm/kg mOsm/ kg (285-295) Calcium 8.3 mg/dL L mg/dL (8.5-10.5) Troponin T Baselin e 14 ng/L H ng/L (0-10) Troponin T 120 Min [place] Troponin T 05/30/21 06:54 WBC RBC Hgb Hct MCV MCH MCHC RDW Plt Count MPV Neut % (Auto) Lymph % (Auto) [place] % (Auto) Eos % (Auto) Baso % (Auto) Neut # (Auto) Lymph # (Auto) Tift # (Auto) Eos # (Auto) Baso # (Auto) Nucleated RBC % (a uto) Nucleated RBCs # Sodium Potassium Chloride Carbon Dioxide Anion Gap BUN Creatinine GFR Calculation Glucose Calculated Osmolal ity Calcium Troponin T Baselin e Troponin T 120 Min [place] 14.88 ng/L H ng/L (0-10) Delta Troponin T 0.88 ABS# ABS# (0-10) Discharge Plan Discharge Patient Disposition: Home Clinical Impression: Chest pain Condition: Stable Prescriptions: No Action amlodipine 10 mg tablet 10 mg PO QDAY RF: 0 potassium chloride 20 mEq tablet extended release 20 meq PO QDAY PRN (Reason: low potassium) RF: 0 brimonidine 0.15 % drops 1 drop ophthalmic (eye) Q8H RF: 0 ICaps AREDS 14,320-226-200 oafm-fj-gzxk capsule 1 cap PO ONCE RF: 0 multivitamin Tablet 1 tab PO QAM RF: 0 levothyroxine 25 mcg capsule 25 mcg PO QDAY RF: 0 acetaminophen [Tylenol] 325 mg tablet 650 mg PO Q6H PRN (Reason: Pain) RF: 0 omeprazole 20 mg tablet,delayed release (DR/EC) 40 mg PO QDAY RF: 0 (DME) cmc brace Qty: 1 RF: 0 furosemide [Lasix] 40 mg tablet 40 mg PO DAILY PRN (Reason: diuresis) RF: 0 aspirin [Adult Low Dose Aspirin] 81 mg tablet,delayed release (DR/EC) 81 mg PO DAILY Qty: 90 RF: 3 mycophenolate mofetil 500 mg tablet 1,000 mg PO BID Qty: 120 RF: 5 montelukast [Singulair] 10 mg tablet 10 mg PO DAILY RF: 0 metoprolol tartrate 25 mg tablet See Rx Instructions .ROUTE .COMPLEX Qty: 180 RF: 3 pravastatin 80 mg tablet See Rx Instructions .ROUTE .COMPLEX Qty: 90 RF: 3 Discharge Orders: Discharge ED (Routine); Ordered 05/30/21 Ordered By: Kia Carvajal Referrals: Ivan Mae DO [Primary Care Provider] - Discharge Diet: Advance as tolerated Discharge Activity: Resume usual activity Patient Instructions: Chest Pain (ED) Activity Restrictions/Additional Instructions: Our pillowcase sewer will have you follow-up with a stress test in the next few days. You would be expected to have a phone call with our pillowcase sewer who will put you on the schedule. Please call us if you don't hear from us. Come back to the emergency room if your chest pain worsens, have any fever or chills, worsening shortness of breath, worsening exertional lightheadedness, or any new or concerning complaints. Coding Level of Care Code ED Customer Services Manager for Kenisha Jackson
--- NOTE | 2021-05-30 06:24 | ECG_ITS ---
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 Measurements Intervals [place] Rate: 77 P: 180 [place]: 177 QRS: -46 QRSD: 175 T: 82 QT: 460 QTc: 524 Interpretive Statements ELECTRONIC ATRIAL PACEMAKER ELECTRONIC VENTRICULAR PACEMAKER Compared to ECG 05/13/2020 05:53:29 No significant changes Electronically Signed On 06-01-2021 17:30:33 POUCH MAKER by Hua Chand M.D. [email or web address] [email or web address] [email or web address] centerGuide Financial/store/[id number]
[2021-05-30] MEDS: potassium chloride ER 20 mEq Tablet PO (07:15)
[2021-05-30 07:38] LABS: Troponin 5 2HR 14.88 ng/L (0-10); Troponin 5 2HR Delta 0.88 ABS# (0-10)
--- NOTE | 2021-06-01 10:27 | DCPLANNER ---
manager market research had message to schedule an outpatient stress test for patient. manager market research faxed signed order to centralized scheduling, who will call patient with appointment information.
--- NOTE | 2021-06-19 08:40 | DCPLANNER ---
Patient has an outpatient stress test scheduled for Tuesday, June 29, 2021 at 11:30. Centralized scheduling will call patient with appointment information.
--- NOTE | 2021-07-14 08:13 | DCPLANNER ---
Patient had a stress test - this was cancelled.
== END 2021-05-30 08:44 | disposition home or self-care (01) ==
PROVIDERS: Emergency Medicine; Emergency Provider Emergency Medicine; PCP Internal Medicine
DX: R07.9 Chest pain, unspecified (principal); Z79.82 Long term (current) use of aspirin; I10 Essential (primary) hypertension; E78.2 Mixed hyperlipidemia; Z95.0 Presence of cardiac pacemaker
CPT/HCPCS: 36415; 71045; 80048; 84484; 85025; 93005; 99283; 99291

== ENCOUNTER 2021-06-23 09:26 | Outpatient (CLI) | payer MEDICARE, OTHER, SELFPAY ==
[2021-06-23 10:14] LABS: Anion Gap 19.6 (5-19); Blood Urea Nitrogen 12 mg/dL (8-23); Calcium 7.7 mg/dL (8.5-10.5); Carbon Dioxide 21 mmol/L (22-29); Chloride 109 mmol/L (98-107); Glucose 106 mg/dL (65-115); Osmolality Calculated 302 mOsm/kg (285-295); Potassium 3.6 mmol/L (3.5-5.1); Sodium 146 mmol/L (136-145)
== END 2021-06-23 09:27 | disposition home or self-care (01) ==
PROVIDERS: PCP Internal Medicine; Visit Provider Internal Medicine Cardiovascular Disease
DX: E87.6 Hypokalemia (principal)
CPT/HCPCS: 80048

== ENCOUNTER → 2021-07-27 10:39 | Outpatient (BNVA) | payer MEDICARE, OTHER, SELFPAY | PROVIDERS: PCP Internal Medicine; Visit Provider Specialist | DX: G70.00 Myasthenia gravis without (acute) exacerbation (principal); J40 Bronchitis, not specified as acute or chronic | CPT/HCPCS: 71046; 99214 ==

== ENCOUNTER 2021-07-27 13:40 | Outpatient (CLI) | payer MEDICARE, OTHER, SELFPAY ==
--- NOTE | 2021-07-27 13:55 | XR_ITS ---
WS: [id number] XR chest 2V* [id number] REASON FOR EXAM: J40 - Bronchitis, not specified as acute or chronic FINDINGS: Chest is unchanged compared to previous examination 05/30/2021. Battery pack overlying the left anterolateral chest wall. Transvenous left subclavian vein leads to the right atrium and right ventricle. Tortuous thoracic aorta without aneurysmal dilatation. Calcified granulomatous disease bilaterally. Elevation of both hemidiaphragms versus focal eventrations. Bilateral total shoulder joints. XR/XR chest 2V* [id number] IMPRESSION: Stable chest without acute abnormality.
== END 2021-07-27 13:41 | disposition home or self-care (01) ==
LOC: RAD 13:53
PROVIDERS: PCP Internal Medicine; Visit Provider Specialist
DX: J40 Bronchitis, not specified as acute or chronic (principal)
CPT/HCPCS: 71046

== ENCOUNTER 2021-08-17 09:42 | Outpatient (CLI) | payer MEDICARE, OTHER, SELFPAY ==
[2021-08-17 10:49] LABS: Basophils % 0.6 %; Eosinophils # 0.1 10^3/uL (0.0-0.8); Eosinophils % 0.8 %; Hematocrit 43.4 % (37.0-47.0); Hemoglobin 13.9 g/dL (11.5-15.3); Lymphocytes # 1.7 10^3/uL (0.8-4.8); Lymphocytes % 26.9 %; Mean Corpuscular Hemoglobin 29.7 pg (28.0-34.0); Mean Corpuscular Volume 92.7 fl (81-99); Mean Platelet Volume 9.6 fL (7.4-10.4); Monocytes # 0.5 10^3/uL (0.2-0.9); Monocytes % 8.1 %; Neutrophils # 3.93 10^3/uL (1.8-7.7); Neutrophils % 62.6 %; Nucleated Red Blood Cells % 0 %; Platelet Count 341 10^3/cmm (130-400); Red Blood Count 4.68 10^6/uL (4.1-5.3); Red Cell Distribution Width 13.6 % (12.1-15.1); White Blood Count 6.3 10^3/uL (4.0-10.0)
[2021-08-17 11:12] LABS: Alanine Aminotransferase 11 U/L (0-33); Albumin Level 4.3 g/dL (3.5-5.2); Alkaline Phosphatase 98 IU/L (35-105); Aspartate Amino Transferase 19 U/L (0-32); Blood Urea Nitrogen 15 mg/dL (8-23); Calcium 8.5 mg/dL (8.5-10.5); Carbon Dioxide 24 mmol/L (22-29); Chloride 106 mmol/L (98-107); Ferritin 19 ng/mL (15-150); Globulin 2.6 g/dL (1.3-4.6); Glucose 110 mg/dL (65-115); Iron 75 ug/dL (37-145); Osmolality Calculated 295 mOsm/kg (285-295); Percent Saturation 46.8 % (20-50); Sodium 142 mmol/L (136-145); Total Bilirubin 0.3 mg/dL (0.15-1.2); Total Iron Binding Capacity 160 mcg/dl; Total Protein 6.9 g/dL (6.6-8.7); Unsaturated Iron Binding 85 ug/dL (112-347)
== END 2021-08-17 09:43 | disposition home or self-care (01) ==
LOC: RAD 09:55 → ONCMED 10:33
PROVIDERS: Internal Medicine Medical Oncology; PCP Internal Medicine; Visit Provider Emergency Medicine
DX: E83.110 Hereditary hemochromatosis (principal); G70.00 Myasthenia gravis without (acute) exacerbation; Z79.899 Other long term (current) drug therapy
CPT/HCPCS: 36415; 80053; 82728; 83540; 83550; 85025

== ENCOUNTER → 2021-08-19 07:53 | Outpatient (BNVA) | payer MEDICARE, OTHER, SELFPAY | PROVIDERS: PCP Internal Medicine; Visit Provider Specialist | DX: G70.00 Myasthenia gravis without (acute) exacerbation (principal); Z96.643 Presence of artificial hip joint, bilateral | CPT/HCPCS: 99213; 99214 ==

== ENCOUNTER 2022-01-31 21:18 | Emergency (ER) | payer MEDICARE, OTHER, SELFPAY ==
[2022-01-31 21:24] VITALS: BP 128/59; PULSE 77; RESP 24; TEMP 36.6; O2SAT 96; BMI 32.9
--- NOTE | 2022-01-31 21:26 | XRR_ITS ---
PROCEDURE INFORMATION: Exam: XR Chest Exam date and time: 01/31/2022 9:49 PM Age: 81 years old Clinical indication: Angina; Additional info: Cp TECHNIQUE: Imaging protocol: Radiologic exam of the chest. Views: 1 view. COMPARISON: CR XR chest 2V* [id number] 07/27/2021 1:56 PM FINDINGS: Tubes, catheters and devices: There is a dual-lead cardiac pacer via left subclavian approach. Findings are stable. Lungs: Lungs are clear bilaterally. Pleural spaces: No pleural effusion. No pneumothorax. Heart/Mediastinum: Stable mild enlargement of the cardiac silhouette. Mediastinal contours are unremarkable. Vasculature: Stable vascular calcifications in the aorta. Bones/joints: Stable changes consistent with a right shoulder hemiarthroplasty and left shoulder reverse arthroplasty. Multilevel degenerative changes of varying severity in the visualized spine. Bones are diffusely osteopenic. XR/XR chest 1V portable [id number] IMPRESSION: 1. No acute cardiopulmonary process. 2. Incidental/nonacute findings are listed in the report.
--- NOTE | 2022-01-31 21:29 | ECG_ITS ---
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 Measurements Intervals [place] Rate: 88 P: 39 [place]: 203 QRS: -70 QRSD: 162 T: 91 QT: 430 QTc: 521 Interpretive Statements ELECTRONIC VENTRICULAR PACEMAKER-A paced, V -sensed rhythm ABNORMAL RHYTHM ECG Compared to ECG 05/30/2021 05:35:27 Atrial-paced complex(es) or rhythm no longer present Electronically Signed On 02-02-2022 0:29:20 CDT by Yair Odom M.D. [email or web address] [email or web address] [email or web address] system.[employer]/store/[id number]
--- NOTE | 2022-01-31 21:51 | ED_ITS ---
HPI - Chest Pain General: Chief Complaint: Chest Pain Stated Complaint: Chest pain Time Seen by Provider: 01/31/22 21:27 Source: patient Mode of arrival: ambulatory Limitations: no limitations History of Present Illness: 7-year-old female who states that she is having some intermittent chest pains over the last 3 to 4 days. She states that tonight roughly 2 hours ago she is having some sharp pain in the center of her chest denies any radiation denies any nausea. States the pain is since resolved she is currently pain-free she denies any cough or fever denies any vomiting or diarrhea. Associated symptoms: Deny abdominal pain, dyspnea, fever(s), nausea or vomiting Review of Systems Const: Denies: fever(s), chills, body aches or change in appetite Eyes: Denies: blurry vision or eye discomfort ENMT: Denies: throat pain or dental pain Card: Reports: chest pain Resp: Denies: dyspnea GI: Denies: abdominal pain, nausea, vomiting or diarrhea : Denies: dysuria Musc: Denies: neck pain or back pain Skin/Breast: Denies: rash Neuro: Denies: headache(s) Psych: Denies: depression Gentry/Lymph: Denies: easy bruising All/Imm: Denies: urticaria PFSH ED PFSH: Medical History ASHD (arteriosclerotic heart disease) Hypertension Mixed hyperlipidemia AIDA (obstructive sleep apnea) Pacemaker Supraventricular tachycardia Thyroid disease Surgical History History of arthroplasty of knee History of bilateral hip replacements Status post reverse arthroplasty of left shoulder Status post total left knee replacement Family History Grandmother Cancer Father Lung disease Grandfather Suicide Other Hypertension Denies family history of Diabetes CAD (coronary artery disease) Clotting disorder Dementia Chronic kidney disease (CKD) Anesthesia complication Bleeding disorder Stroke Social History Smoking and tobacco status: never smoked Alcohol intake: never History of recent travel: No Physical Exam Const: COMMON NORMALS: no acute distress, patient oriented x3 and healthy appearing HENMT: COMMON NORMALS: normocephalic and atraumatic HEAD & SCALP: normocephalic and atraumatic Eye: COMMON NORMALS: Equal, round and reactive pupils present and EOMs intact bilaterally PUPIL: Yes Equal, round and reactive pupils present Neck/C-Spine: COMMON NORMALS: full ROM and supple Chest: COMMONS NORMALS: normal inspection of the chest and normal palpation of entire chest wall Resp: COMMON NORMALS: normal respiratory effort, No retractions, No use of accessory muscles and clear to auscultation bilaterally AUSCULTATION: clear to auscultation bilaterally Cardio: COMMON NORMALS: regular rate, regular rhythm and No murmurs present (Cardio) RATE: regular rate RHYTHM: regular rhythm GI: COMMON NORMALS: Normal to inspection, nondistended, normoactive bowel sounds present, Soft to palpation, non-tender and no masses PALPATION: Yes Soft to palpation Extremity: COMMON NORMALS: normal to inspection and full ROM Neuro: COMMON NORMALS: patient oriented x3, moves all extremities and no focal motor deficits Psych: COMMON NORMALS: mental status grossly normal, Normal thought process present and cooperative THOUGHT PROCESS: Normal thought process present Skin: COMMON NORMALS: no rashes or lesions noted and no wounds GENERAL SKIN EXAM: no rashes or lesions noted Course Vital Signs: Vital signs: Vital Signs Temperature 97.9 F 01/31/22 21:24 Pulse Rate 69 02/01/22 00:31 Respiratory Rate 18 02/01/22 00:31 Blood Pressure 144/65 02/01/22 00:31 Pulse Oximetry 95 02/01/22 00:31 Oxygen Delivery Me thod 02/01/22 00:31 MDM - Chest Pain Medical Decision Making Patient presents for chest pain that has been resolved while she has been here patient's troponins here are negative EKG shows paced rhythm she is feels i mproved she stable for discharge she is to follow-up with her brake specialist in 4 to 5 days and return if worsening she understands agrees to plan. Lab Data : 01/31/22 21:55 01/31/22 21:55 Radiology Impressions Chest X-Ray 01/31/22 21:26 IMPRESSION: 1. No acute cardiopulmonary process. 2. Incidental/nonacute findings are listed in the report. Laboratory Results WBC 10.5 10^3/uL (4.0-10.0) H 01/31/22 21:55 RBC 4.82 10^6/uL (4.1-5.3) 01/31/22 21:55 Hgb 14.3 g/dL (11.5-15.3) 01/31/22 21:55 Hct 44.7 % (37.0-47.0) 01/31/22 21:55 MCV 92.7 fl (81-99) 01/31/22 21:55 MCH 29.7 pg (28.0-34.0) 01/31/22 21:55 MCHC 32.0 g/dL (30.0-36.0) 01/31/22 21:55 RDW 13.5 % (12.1-15.1) 01/31/22 21:55 Plt Count 383 10^3/cmm (130-400) 01/31/22 21:55 MPV 9.3 fL (7.4-10.4) 01/31/22 21:55 Neut % (Auto) 54.5 % 01/31/22 21:55 Lymph % (Auto) 33.6 % 01/31/22 21:55 White % (Auto) 9.9 % 01/31/22 21:55 Eos % (Auto) 0.8 % 01/31/22 21:55 Baso % (Auto) 0.5 % 01/31/22 21:55 Neut # (Auto) 5.76 10^3/uL (1.8-7.7) 01/31/22 21:55 Lymph # (Auto) 3.5 10^3/uL (0.8-4.8) 01/31/22 21:55 White # (Auto) 1.0 10^3/uL (0.2-0.9) H 01/31/22 21:55 Eos # (Auto) 0.1 10^3/uL (0.0-0.8) 01/31/22 21:55 Baso # (Auto) 0.1 10^3/uL (0.0-0.1) 01/31/22 21:55 Nucleated RBC % (auto) 0 % 01/31/22 21:55 Nucleated RBCs # 0.0 /100WBC 01/31/22 21:55 Sodium 142 mmol/L (136-145) 01/31/22 21:55 Potassium 3.4 mmol/L (3.5-5.1) L 01/31/22 21:55 Chloride 103 mmol/L (98-107) 01/31/22 21:55 Carbon Dioxide 21 mmol/L (22-29) L 01/31/22 21:55 Anion Gap 21.4 (5-19) H 01/31/22 21:55 BUN 17 mg/dL (8-23) 01/31/22 21:55 Creatinine 0.8 mg/dL (0.5-0.9) 01/31/22 21:55 GFR Calculation Not Reportable 01/31/22 21:55 Glucose 132 mg/dL (65-115) H 01/31/22 21:55 Calculated Osmolality 297 mOsm/kg (285-295) H 01/31/22 21:55 Calcium 8.4 mg/dL (8.5-10.5) L 01/31/22 21:55 Total Bilirubin 0.2 mg/dL (0.15-1.2) 01/31/22 21:55 AST 19 U/L (0-32) 01/31/22 21:55 ALT 13 U/L (0-33) 01/31/22 21:55 Alkaline Phosphatase 114 IU/L (35-105) H 01/31/22 21:55 Troponin T Baseline 13 ng/L (0-10) H 01/31/22 21:55 Troponin T 120 Minute 14.84 ng/L (0-10) H 01/31/22 23:40 Delta Troponin T 1.84 ABS# (0-10) 01/31/22 23:40 Total Protein 7.1 g/dL (6.6-8.7) 01/31/22 21:55 Albumin 4.2 g/dL (3.5-5.2) 01/31/22 21:55 Globulin 2.9 g/dL (1.3-4.6) 01/31/22 21:55 EKG Data EKG 1: I personally reviewed and interpreted this EKG as follows: EKG interpretation date: 01/31/22 EKG interpretation time: 21:29 Interpretation: paced rhythm hr [address] or t wave abnormalities qrs 162 qtc 475 Discharge Plan Discharge Patient Disposition: Home Clinical Impression: Chest pain Condition: Stable Prescriptions: No Action amlodipine 10 mg tablet 10 mg PO QDAY brimonidine 0.15 % drops 1 drop ophthalmic (eye) Q8H multivitamin Tablet 1 tab PO QAM levothyroxine 25 mcg capsule 25 mcg PO QDAY omeprazole 20 mg tablet,delayed release (DR/EC) 40 mg PO QDAY aspirin [Adult Low Dose Aspirin] 81 mg tablet,delayed release (DR/EC) 81 mg PO DAILY Qty: 90 3RF potassium chloride 8 mEq tablet extended release 8 meq PO DAILY montelukast [Singulair] 10 mg tablet 10 mg PO DAILY metoprolol tartrate 25 mg tablet See Rx Instructions .ROUTE .COMPLEX Qty: 180 3RF Dose Instruction: TAKE 1 TABLET BY MOUTH TWICE A DAY Rx Instructions: TAKE 1 TABLET BY MOUTH TWICE A DAY pravastatin 80 mg tablet See Rx Instructions .ROUTE .COMPLEX Qty: 90 3RF Dose Instruction: TAKE 1 TABLET BY MOUTH EVERYDAY AT BEDTIME Rx Instructions: TAKE 1 TABLET BY MOUTH EVERYDAY AT BEDTIME (DME) CPAP NASAL CANNULA SUPPLY See Rx Instructions .Route .MEDSUPPLY Qty: 1 0RF Rx Instructions: As directed mycophenolate mofetil 500 mg tablet 1,000 mg PO BID Qty: 120 5RF Discharge Orders: Discharge ED (Routine); Ordered 02/01/22 Ordered By: Shelley Smith Referrals: Ivan Mae DO [Primary Care Provider] - Discharge Diet: Advance as tolerated Discharge Activity: Resume usual activity Patient Instructions: Chest Pain (ED) Coding Level of Care Code ED Cleaner Operator for Williamg Fwd Exam Comprehensive
[2022-01-31 22:02] LABS: Basophils # 0.1 10^3/uL (0.0-0.1); Basophils % 0.5 %; Eosinophils # 0.1 10^3/uL (0.0-0.8); Eosinophils % 0.8 %; Hematocrit 44.7 % (37.0-47.0); Hemoglobin 14.3 g/dL (11.5-15.3); Lymphocytes # 3.5 10^3/uL (0.8-4.8); Lymphocytes % 33.6 %; Mean Corpuscular Hemoglobin 29.7 pg (28.0-34.0); Mean Corpuscular Volume 92.7 fl (81-99); Mean Platelet Volume 9.3 fL (7.4-10.4); Monocytes % 9.9 %; Neutrophils # 5.76 10^3/uL (1.8-7.7); Neutrophils % 54.5 %; Nucleated Red Blood Cells % 0 %; Platelet Count 383 10^3/cmm (130-400); Red Blood Count 4.82 10^6/uL (4.1-5.3); Red Cell Distribution Width 13.5 % (12.1-15.1); White Blood Count 10.5 10^3/uL (4.0-10.0)
[2022-01-31 22:27] LABS: Alanine Aminotransferase 13 U/L (0-33); Albumin Level 4.2 g/dL (3.5-5.2); Alkaline Phosphatase 114 IU/L (35-105); Anion Gap 21.4 (5-19); Aspartate Amino Transferase 19 U/L (0-32); Blood Urea Nitrogen 17 mg/dL (8-23); Calcium 8.4 mg/dL (8.5-10.5); Carbon Dioxide 21 mmol/L (22-29); Chloride 103 mmol/L (98-107); Globulin 2.9 g/dL (1.3-4.6); Glucose 132 mg/dL (65-115); Osmolality Calculated 297 mOsm/kg (285-295); Potassium 3.4 mmol/L (3.5-5.1); Sodium 142 mmol/L (136-145); Total Bilirubin 0.2 mg/dL (0.15-1.2); Total Protein 7.1 g/dL (6.6-8.7)
[2022-01-31 22:28] LABS: Troponin(5th) Baseline 13 ng/L (0-10)
[2022-01-31 23:02] VITALS: BP 138/73; PULSE 71; RESP 20; O2SAT 95
[2022-02-01 00:08] VITALS: BP 150/76; PULSE 72; RESP 20; O2SAT 94
[2022-02-01 00:15] LABS: Troponin 5 2HR 14.84 ng/L (0-10)
[2022-02-01 00:16] LABS: Troponin 5 2HR Delta 1.84 ABS# (0-10)
[2022-02-01 00:31] VITALS: BP 144/65; PULSE 69; RESP 18; O2SAT 95
== END 2022-02-01 01:02 | disposition home or self-care (01) ==
PROVIDERS: Emergency Provider Emergency Medicine; PCP Internal Medicine
DX: R07.9 Chest pain, unspecified (principal); Z79.82 Long term (current) use of aspirin; I10 Essential (primary) hypertension; E78.2 Mixed hyperlipidemia; Z95.0 Presence of cardiac pacemaker
CPT/HCPCS: 36415; 71045; 80053; 84484; 85025; 93005; 99285

== ENCOUNTER → 2022-02-08 08:43 | Outpatient (BNVA) | payer MEDICARE, OTHER, SELFPAY | PROVIDERS: PCP Internal Medicine; Visit Provider Nurse Practitioner Family | DX: I25.10 Atherosclerotic heart disease of native coronary artery without angina pectoris (principal); I10 Essential (primary) hypertension; Z87.891 Personal history of nicotine dependence | CPT/HCPCS: 99214 ==

== ENCOUNTER 2022-02-23 08:35 | Outpatient (CLI) | payer MEDICARE, OTHER, SELFPAY ==
[2022-02-23 09:16] LABS: Basophils # 0.1 10^3/uL (0.0-0.1); Basophils % 0.9 %; Eosinophils # 0.1 10^3/uL (0.0-0.8); Eosinophils % 0.9 %; Hemoglobin 12.7 g/dL (11.5-15.3); Lymphocytes # 1.6 10^3/uL (0.8-4.8); Lymphocytes % 24.7 %; Mean Corpuscular HGB Conc 31.8 g/dL (30.0-36.0); Mean Corpuscular Hemoglobin 29.4 pg (28.0-34.0); Mean Corpuscular Volume 92.6 fl (81-99); Mean Platelet Volume 9.1 fL (7.4-10.4); Monocytes # 0.6 10^3/uL (0.2-0.9); Monocytes % 8.4 %; Neutrophils # 4.23 10^3/uL (1.8-7.7); Neutrophils % 63.7 %; Nucleated Red Blood Cells % 0 %; Platelet Count 328 10^3/cmm (130-400); Red Blood Count 4.32 10^6/uL (4.1-5.3); Red Cell Distribution Width 13.2 % (12.1-15.1); White Blood Count 6.6 10^3/uL (4.0-10.0)
[2022-02-23 09:33] LABS: Aspartate Amino Transferase 21 U/L (0-32); Blood Urea Nitrogen 16 mg/dL (8-23); Ferritin 25 ng/mL (15-150); Iron 77 ug/dL (37-145); Total Iron Binding Capacity 208 mcg/dl; Unsaturated Iron Binding 131 ug/dL (112-347)
== END 2022-02-23 08:36 | disposition home or self-care (01) ==
LOC: LAB 08:40
PROVIDERS: PCP Internal Medicine; Visit Provider Specialist
DX: E61.1 Iron deficiency (principal)
CPT/HCPCS: 36415; 82565; 82728; 83540; 83550; 84450; 84520; 85025

== ENCOUNTER → 2022-03-02 07:43 | Outpatient (BNVA) | payer MEDICARE, OTHER, SELFPAY | PROVIDERS: PCP Internal Medicine; Visit Provider Specialist | DX: G70.00 Myasthenia gravis without (acute) exacerbation (principal); R06.09 Other forms of dyspnea; I25.10 Atherosclerotic heart disease of native coronary artery without angina pectoris | CPT/HCPCS: 99213; 99214 ==

== ENCOUNTER 2022-03-29 12:15 | Oncology outpatient (recurring) (ONCR) | payer MEDICARE, OTHER, SELFPAY | END 2022-04-26 23:59 | disposition home or self-care (01) | PROVIDERS: PCP Internal Medicine; Visit Provider Internal Medicine Medical Oncology | DX: E83.110 Hereditary hemochromatosis (principal); Z79.899 Other long term (current) drug therapy | CPT/HCPCS: 99214 ==

== ENCOUNTER 2022-04-03 13:37 | Emergency (ER) | payer MEDICARE, OTHER, SELFPAY ==
[2022-04-03 13:45] VITALS: BMI 32.9
--- NOTE | 2022-04-03 14:28 | ED_ITS ---
HPI - General Adult General: Chief complaint: Weakness Stated complaint: Shakes, legs tingling and going to sleep Time Seen by Provider: 04/03/22 14:22 History of Present Illness: Patient is an 81-year-old female with a history of pacemaker dependence, myasthenia gravis presenting to the emergency room for evaluation of paresthesia and tingling in the arms and legs. Patient tells me that she has as needed numbing paresthesias sensation in the fingers in the digits for the last 3-month. Patient was told by Dr. Galindo to come to the emergency room further evaluation including imaging study of the back. Patient denies any fever/chills, cough, no sore throat, abdominal pain, diarrhea, melena/hematochezia. Patient has no positive chest pressure of breath. Concern the patient's myasthenia gravis, patient is on mycophenolate. Patient follows with Dr. Galindo. Last time patient has of myasthenia gravis was 5 years ago. Patient has no complaints of respiratory distress or increased fatigue. Patient denies any neck or recent trauma. Onset: 3 months ago Duration:3 months Location:home Severity:moderate Associated symptoms: Deny chest pain, dyspnea, nausea, rash, palpitations or vomiting Review of Systems Const: Denies: fever(s) or chills Eyes: Denies: change in vision ENMT: Denies: mouth pain Card: Denies: chest pain or palpitations Resp: Denies: dyspnea or non-productive cough GI: Denies: abdominal pain, nausea, vomiting or diarrhea : Denies: dysuria Musc: Denies: extremity pain Skin/Breast: Denies: rash or new lesions Neuro: Reports: other (+paresthesia in the digts in all extremities); Denies: weakness in extremities Psych: Reports: other (Normal mood) Gentry/Lymph: Denies: easy bruising PFS ED PFSH: Medical History (Updated 04/03/22 @ 16:15 by Kia Carvajal MD) ASHD (arteriosclerotic heart disease) Atrial fibrillation Hereditary hemochromatosis Hypertension Hypothyroidism Mixed hyperlipidemia Myasthenia gravis AIDA (obstructive sleep apnea) Surgical History (Updated 03/30/22 @ 06:09 by Ivan Lazo MD) History of bilateral hip replacements History of coronary artery bypass surgery History of permanent cardiac pacemaker placement History of replacement of both shoulder joints History of tonsillectomy and adenoidectomy Hx of cataract extraction Status post reverse arthroplasty of left shoulder Status post total left knee replacement Family History Grandmother Cancer Father Lung disease Grandfather Suicide Other Hypertension Denies family history of Diabetes CAD (coronary artery disease) Clotting disorder Dementia Chronic kidney disease (CKD) Anesthesia complication Bleeding disorder Stroke Social History Smoking and tobacco status: never smoked Alcohol intake: never History of recent travel: No Physical Exam Const: COMMON NORMALS: alert HENMT: COMMON NORMALS: atraumatic HEAD & SCALP: atraumatic MOUTH: moist mucous membranes not abnormal Eye: COMMON NORMALS: EOMs intact bilaterally and conjunctivae normal CONJUNCTIVA: Yes conjunctivae normal Neck/C-Spine: COMMON NORMALS: full ROM and supple Resp: COMMON NORMALS: normal respiratory effort and clear to auscultation bilaterally AUSCULTATION: clear to auscultation bilaterally Cardio: COMMON NORMALS: regular rate RATE: regular rate GI: COMMON NORMALS: Soft to palpation and non-tender PALPATION: Yes Soft to palpation Back/Pelvis: OTHER: No midline tenderness in the thoracic, cervical/lumbar area Extremity: COMMON NORMALS: full ROM Neuro: SENSORIUM/ORIENTATION: Yes alert MOTOR EXAM: No Abnormal motor strength present and Other motor observations present (no focal motor deficits) OTHER: Strength 5 out of 5 in all extremities, cranial nerves II through grossly intact, patient is AAOx3, answering all questions appropriately Psych: COMMON NORMALS: speech normal SPEECH: Yes normal speech MOOD & AFFECT: Yes euthymic mood Course Vital Signs: Vital signs: Vital Signs Oxygen Delivery Me thod 04/03/22 13:45 MDM - General Adult Medical Decision Making 81-year-old female with history of myasthenia gravis presenting to the emergency room with digit paresthesia. Patient is no complaints of back pain. Per Dr. Galindo, we will order imaging. Imaging study negative for any acute findings. I have given patient follow up with our mental health case manager to be seen by our outpatient by Dr. Galindo for the paresthesia. Patient aware of a call from our mental health case manager to schedule for appointment(s) and verbalizes understanding of the importance of following up. Rx, Tylenol, lidocaine patch, and menthol PRN pain and parethesia Disposition: Discharge. Patient counseled regarding diagnostic impression, treatment plan. Patient given ED strict return precautions to return for continuation, worsening, or development of new symptoms. Instructed to f/u w/ PCP regarding symptoms today. Patient verbalized understanding. Lab Data Radiology Impressions Lumbar Spine CT 04/03/22 14:36 IMPRESSION: 1. Negative for fracture or dislocation. 2. Emphysematous changes suspected. 3. Small hiatal hernia. 4. Bilateral renal cysts. 5. L3-L4 productive degenerative changes resulting in mild spinal canal and bilateral foraminal narrowing. 6. L4-L5 broad-based disc bulge with productive degenerative changes resulting in cjpf-po-ulhtcake spinal canal and bilateral foraminal narrowing. 7. L5/S1 productive degenerative changes resulting in mild spinal canal with mild right and moderate left foraminal narrowing. COMMENTS: Consistent with the [employer]'s Incidental Findings Committee white paper (J Am Mirta Radiol 2018): Any incidental renal lesion less than 1 cm or classified as too small to characterize, or any incidental cystic renal lesion characterized as simple-appearing, is likely benign. No follow-up imaging is recommended for these lesions per consensus recommendations based on imaging criteria. Imaging Data Other Imaging: Radiologist's impression: [place] [address] CT Scan Report Signed Patient: Keysha Kearns Unit #: [id number] : 1940 Age/Sex: 81 / F ADM Date: 04/03/22 Loc: ER Room/Bed: Attending Dr: Ordering Provider/Ordering MD: Kia Carvajal MD Date of Service: 04/03/22 Procedure(s): CT lumbar spine wo con* [id number] Accession Number(s): [id number] Report Number: [id number] PROCEDURE INFORMATION: Exam: CT Lumbar Spine Without Contrast Exam date and time: 04/03/2022 2:51 PM Age: 81 years old Clinical indication: Low back pain TECHNIQUE: Imaging protocol: Computed tomography of the lumbar spine without contrast. Radiation optimization: All CT scans at this facility use at least one of these dose optimization techniques: automated exposure control; mA and/or kV adjustment per patient size (includes targeted exams where dose is matched to clinical indication); or iterative reconstruction. COMPARISON: CR XR lumbar spine 2-3V* [id number] 08/25/2017 10:36 AM RADIATION DOSE METRICS: Total DLP (mGy-cm): 772.47 FINDINGS: Bones/joints: See L3-L4 finding. L1-L2: No significant disc protrusion. No severe spinal canal stenosis. No significant neural foraminal narrowing. L2-L3: No significant disc protrusion. No severe spinal canal stenosis. No significant neural foraminal narrowing. L3-L4: L3-L4 productive degenerative changes resulting in mild spinal canal and bilateral foraminal narrowing. L4-L5: L4-L5 broad-based disc bulge with productive degenerative changes resulting in ykwb-qx-urthogot spinal canal and bilateral foraminal narrowing. L5-S1: L5/S1 productive degenerative changes resulting in mild spinal canal with mild right and moderate left foraminal narrowing. Lungs: Emphysematous changes suspected. Kidneys and ureters: Bilateral renal cysts. Soft tissues: Unremarkable. Other findings: Small hiatal hernia. CT/CT lumbar spine wo con* [id number] IMPRESSION: 1. Negative for fracture or dislocation. 2. Emphysematous changes suspected. 3. Small hiatal hernia. 4. Bilateral renal cysts. 5. L3-L4 productive degenerative changes resulting in mild spinal canal and bilateral foraminal narrowing. 6. L4-L5 broad-based disc bulge with productive degenerative changes resulting in feuv-vr-cyxpnpny spinal canal and bilateral foraminal narrowing. 7. L5/S1 productive degenerative changes resulting in mild spinal canal with mild right and moderate left foraminal narrowing. ? COMMENTS: Consistent with the [employer]'s Incidental Findings Committee white paper (J Am Mirta Radiol 2018): Any incidental renal lesion less than 1 cm or classified as too small to characterize, or any incidental cystic renal lesion characterized as simple-appearing, is likely benign. No follow-up imaging is recommended for these lesions per consensus recommendations based on imaging criteria. ? Dictated By: Demond Zuniga MD Signed By: Demond Zuniga MD Signed Date/Time: 04/03/22 1640 DD/ 1451 Discharge Plan Discharge Patient Disposition: Home Clinical Impression: Paresthesia Condition: Stable Prescriptions: No Action amlodipine 10 mg tablet 10 mg PO QDAY brimonidine 0.15 % drops 1 drop ophthalmic (eye) Q8H multivitamin Tablet 1 tab PO QAM levothyroxine 25 mcg capsule 25 mcg PO QDAY omeprazole 20 mg tablet,delayed release (DR/EC) 40 mg PO QDAY aspirin [Adult Low Dose Aspirin] 81 mg tablet,delayed release (DR/EC) 81 mg PO DAILY Qty: 90 3RF potassium chloride 8 mEq tablet extended release 8 meq PO DAILY PRN montelukast [Singulair] 10 mg tablet 10 mg PO DAILY metoprolol tartrate 25 mg tablet See Rx Instructions .ROUTE .COMPLEX Qty: 180 3RF Dose Instruction: TAKE 1 TABLET BY MOUTH TWICE A DAY Rx Instructions: TAKE 1 TABLET BY MOUTH TWICE A DAY pravastatin 80 mg tablet See Rx Instructions .ROUTE .COMPLEX Qty: 90 3RF Dose Instruction: TAKE 1 TABLET BY MOUTH EVERYDAY AT BEDTIME Rx Instructions: TAKE 1 TABLET BY MOUTH EVERYDAY AT BEDTIME (DME) CPAP NASAL CANNULA SUPPLY See Rx Instructions .Route .MEDSUPPLY Qty: 1 0RF Rx Instructions: As directed mycophenolate mofetil 500 mg tablet See Rx Instructions .ROUTE .COMPLEX Qty: 360 1RF Dose Instruction: TAKE 2 TABLETS BY MOUTH TWICE A DAY Rx Instructions: TAKE 2 TABLETS BY MOUTH TWICE A DAY Discharge Orders: Discharge ED (Routine); Ordered 04/03/22 Ordered By: Kia Carvajal Referrals: Ivan Mae DO [Primary Care Provider] - Discharge Diet: Advance as tolerated Discharge Activity: Increase activity as tolerated Patient Instructions: Paresthesia (ED) Activity Restrictions/Additional Instructions: Come back if you have any new or concerning issues. Coding Level of Care Code ED Manager Garage for Williamg Fwd Exam Comprehensive
--- NOTE | 2022-04-03 14:36 | CTR_ITS ---
PROCEDURE INFORMATION: Exam: CT Lumbar Spine Without Contrast Exam date and time: 04/03/2022 2:51 PM Age: 81 years old Clinical indication: Low back pain TECHNIQUE: Imaging protocol: Computed tomography of the lumbar spine without contrast. Radiation optimization: All CT scans at this facility use at least one of these dose optimization techniques: automated exposure control; mA and/or kV adjustment per patient size (includes targeted exams where dose is matched to clinical indication); or iterative reconstruction. COMPARISON: CR XR lumbar spine 2-3V* [id number] 08/25/2017 10:36 AM RADIATION DOSE METRICS: Total DLP (mGy-cm): 772.47 FINDINGS: Bones/joints: See L3-L4 finding. L1-L2: No significant disc protrusion. No severe spinal canal stenosis. No significant neural foraminal narrowing. L2-L3: No significant disc protrusion. No severe spinal canal stenosis. No significant neural foraminal narrowing. L3-L4: L3-L4 productive degenerative changes resulting in mild spinal canal and bilateral foraminal narrowing. L4-L5: L4-L5 broad-based disc bulge with productive degenerative changes resulting in nymm-hh-fhhbrdxg spinal canal and bilateral foraminal narrowing. L5-S1: L5/S1 productive degenerative changes resulting in mild spinal canal with mild right and moderate left foraminal narrowing. Lungs: Emphysematous changes suspected. Kidneys and ureters: Bilateral renal cysts. Soft tissues: Unremarkable. Other findings: Small hiatal hernia. CT/CT lumbar spine wo con* [id number] IMPRESSION: 1. Negative for fracture or dislocation. 2. Emphysematous changes suspected. 3. Small hiatal hernia. 4. Bilateral renal cysts. 5. L3-L4 productive degenerative changes resulting in mild spinal canal and bilateral foraminal narrowing. 6. L4-L5 broad-based disc bulge with productive degenerative changes resulting in isdx-pr-hfpnlami spinal canal and bilateral foraminal narrowing. 7. L5/S1 productive degenerative changes resulting in mild spinal canal with mild right and moderate left foraminal narrowing. COMMENTS: Consistent with the [employer]'s Incidental Findings Committee white paper (J Am Mirta Radiol 2018): Any incidental renal lesion less than 1 cm or classified as too small to characterize, or any incidental cystic renal lesion characterized as simple-appearing, is likely benign. No follow-up imaging is recommended for these lesions per consensus recommendations based on imaging criteria.
--- NOTE | 2022-04-05 10:37 | PC.SOCIAL ---
Addendum entered by Kari Oneill 04/14/22 13:48: Patient had a follow up appointment scheduled for 04.05.[address] Galindo at neurology - patient did attend appointment. Original Note: Neurology F/u Message sent to neurology scheduling for f/u. Clinic will contact patient with appointment date and time.
== END 2022-04-03 17:33 | disposition home or self-care (01) ==
PROVIDERS: Emergency Provider Emergency Medicine; PCP Internal Medicine
DX: R20.2 Paresthesia of skin (principal); Z79.82 Long term (current) use of aspirin; I10 Essential (primary) hypertension; E78.2 Mixed hyperlipidemia; Z95.1 Presence of aortocoronary bypass graft; Z95.0 Presence of cardiac pacemaker
CPT/HCPCS: 72131; 99284

== ENCOUNTER → 2022-04-05 14:04 | Outpatient (BNVA) | payer MEDICARE, OTHER, SELFPAY | PROVIDERS: PCP Internal Medicine; Visit Provider Specialist | DX: I20.0 Unstable angina (principal); Z09 Encounter for follow-up examination after completed treatment for conditions other than malignant neoplasm; I48.11 Longstanding persistent atrial fibrillation; G70.00 Myasthenia gravis without (acute) exacerbation; E83.110 Hereditary hemochromatosis; I27.20 Pulmonary hypertension, unspecified; R20.0 Anesthesia of skin; R20.2 Paresthesia of skin; R06.02 Shortness of breath | CPT/HCPCS: 93005; 99215 ==

== ENCOUNTER 2022-04-29 14:31 | Outpatient (CLI) | payer MEDICARE, OTHER, SELFPAY ==
--- NOTE | 2022-04-29 15:00 | USCV_ITS ---
Keysha Kearns Age: 81 Gender: F : 1940 Exam Date: 04/29/2022 14:57 Ordering Phys: Inés Galindo MD Technologist: MARGE Exam Location: [facility] [place] Indication: UNSTABLE ANGINA BP: 123 / 66 HR: 58 Rhythm: Sinus Technical Quality: Adequate MEASUREMENTS (Male / Female) Normal Values 2D ECHO LVOT Diameter 2.0 cm LV Ejection Fraction MOD 2C 67.3 % LV Ejection Fraction 2C AL 70.1 % LA Diameter 3.6 cm LA Width 2.7 cm LA Height 5.2 cm RA Width 3.1 cm RA Height 3.7 cm Aorta at Sinotubular Diameter 1.9 cm IVC Diameter 1.3 cm M-MODE Aortic Annulus Diameter 2.5 cm LA Ao Ratio MM 1.4 MV E Point Septal Separation 0.3 cm DOPPLER AV Peak Velocity 205.3 cm/s LVOT Peak Velocity 151.0 cm/s AV Area Cont Eq vti 2.4 cm squared AV Area Cont Eq pk 2.3 cm squared MV Peak Velocity 110.0 cm/s MV Area PHT 3.7 cm squared Mitral E to A Ratio 0.8 MV E' Velocity 48.0 cm/s Mitral E to MV E' Ratio 8.9 Mitral E to LV E' Lateral Ratio 9.0 Mitral E to LV E' Septal Ratio 8.7 TR Peak Velocity 301.7 cm/s TR Peak Gradient 36.4 mmHg TR Mean Velocity 250.0 cm/s TR Mean Gradient 26.9 mmHg TR Velocity Time Integral 112.2 cm TV Peak E Velocity 74.0 cm/s Right Atrial Pressure 3.0 mmHg Pulmonary Artery Systolic Pressu 39.4 mmHg PV Peak Velocity 154.0 cm/s RV Acceleration Time 0.1 s RV Ejection Time 0.3 s RV AcT/ET 0.2 FINDINGS Left Ventricle Normal left ventricular size and systolic function, EF 68 %. Mild left ventricular hypertrophy. Abnormal (paradoxical) septal motion consistent with postoperative status. Abnormal septal motion consistent with conduction abnormality. Right Ventricle The right ventricle is normal in size and function. Right Atrium The right atrium is normal in size. Left Atrium Mildly increased left atrial size. Mitral Valve Thickened mitral valve. Mild mitral annular calcification. Moderate-severe mitral valve regurgitation. Aortic Valve Thickened aortic valve. Tricuspid Valve Mild to moderate tricuspid valve regurgitation. Pulmonic Valve Not visualized well Pericardium No pericardial effusion Aorta Normal aortic annulus IVC Normal dimension CONCLUSIONS Normal left ventricular size and systolic function, EF 68 %. Mild left ventricular hypertrophy. Abnormal (paradoxical) septal motion consistent with postoperative status. Abnormal septal motion consistent with conduction abnormality. Thickened mitral valve. Mild mitral annular calcification. Moderate-severe mitral valve regurgitation. Mild to moderate tricuspid valve regurgitation. Estimated pulmonary peak systolic pressure of 30 mmHg No intracardiac masses. No pericardial effusion. Compared to the previous study from 12/21/2016, PA pressure appears to be within normal limits now. Dr Yair Odom MD [facility] (Electronically Signed) Final Date: 29 April 2022 18:03 S
== END 2022-04-29 14:32 | disposition home or self-care (01) ==
LOC: RAD 14:32
PROVIDERS: PCP Internal Medicine; Visit Provider Specialist
DX: I20.0 Unstable angina (principal); I34.0 Nonrheumatic mitral (valve) insufficiency; I34.81 Nonrheumatic mitral (valve) annulus calcification; I07.1 Rheumatic tricuspid insufficiency
CPT/HCPCS: 93306

== ENCOUNTER → 2022-05-17 11:52 | Outpatient (BNVA) | payer MEDICARE, OTHER, SELFPAY | PROVIDERS: PCP Internal Medicine; Visit Provider Specialist | DX: G70.00 Myasthenia gravis without (acute) exacerbation (principal); E83.110 Hereditary hemochromatosis; R06.09 Other forms of dyspnea; I34.0 Nonrheumatic mitral (valve) insufficiency | CPT/HCPCS: 99213 ==

== ENCOUNTER → 2022-06-30 10:44 | Outpatient (BNVA) | payer MEDICARE, OTHER, SELFPAY | PROVIDERS: PCP Internal Medicine; Visit Provider Internal Medicine Cardiovascular Disease | DX: I34.0 Nonrheumatic mitral (valve) insufficiency (principal); I48.11 Longstanding persistent atrial fibrillation; E87.6 Hypokalemia; I25.10 Atherosclerotic heart disease of native coronary artery without angina pectoris; I47.1 Supraventricular tachycardia; I10 Essential (primary) hypertension; E78.2 Mixed hyperlipidemia; I27.20 Pulmonary hypertension, unspecified; G70.00 Myasthenia gravis without (acute) exacerbation; R06.09 Other forms of dyspnea | CPT/HCPCS: 36415; 80048; 99214 ==

== ENCOUNTER 2022-09-15 09:20 | Outpatient (CLI) | payer MEDICARE, OTHER, SELFPAY ==
[2022-09-15 09:56] LABS: Basophils # 0.1 10^3/uL (0.0-0.1); Basophils % 0.8 %; Eosinophils # 0.1 10^3/uL (0.0-0.8); Eosinophils % 1.5 %; Hematocrit 42.8 % (37.0-47.0); Hemoglobin 13.6 g/dL (11.5-15.3); Lymphocytes # 2.1 10^3/uL (0.8-4.8); Lymphocytes % 27.5 %; Mean Corpuscular HGB Conc 31.8 g/dL (30.0-36.0); Mean Corpuscular Hemoglobin 29.6 pg (28.0-34.0); Mean Platelet Volume 9.3 fL (7.4-10.4); Monocytes # 0.8 10^3/uL (0.2-0.9); Monocytes % 10.6 %; Neutrophils # 4.37 10^3/uL (1.8-7.7); Neutrophils % 58.4 %; Nucleated Red Blood Cells % 0 %; Platelet Count 323 10^3/cmm (130-400); Red Cell Distribution Width 14.3 % (12.1-15.1); White Blood Count 7.5 10^3/uL (4.0-10.0)
[2022-09-15 10:26] LABS: Alanine Aminotransferase 13 U/L (0-33); Albumin Level 4.4 g/dL (3.5-5.2); Alkaline Phosphatase 91 U/L (35-105); Anion Gap 16.9 (5-19); Aspartate Amino Transferase 21 U/L (0-32); Blood Urea Nitrogen 15 mg/dL (8-23); Calcium 8.7 mg/dL (8.5-10.5); Carbon Dioxide 24 mmol/L (22-29); Chloride 106 mmol/L (98-107); Ferritin 27 ng/mL (15-150); Globulin 2.6 g/dL (1.3-4.6); Glucose 90 mg/dL (65-115); Iron 87 ug/dL (37-145); Osmolality Calculated 296 mOsm/kg (285-295); Percent Saturation 38.4 % (20-50); Potassium 3.9 mmol/L (3.5-5.1); Sodium 143 mmol/L (136-145); Total Bilirubin 0.3 mg/dL (0.15-1.2); Total Iron Binding Capacity 226 mcg/dl; Unsaturated Iron Binding 139 ug/dL (112-347)
== END 2022-09-15 09:21 | disposition home or self-care (01) ==
LOC: LAB 09:24
PROVIDERS: PCP Specialist; Visit Provider Internal Medicine Medical Oncology
DX: E83.110 Hereditary hemochromatosis (principal)
CPT/HCPCS: 36415; 80053; 82728; 83540; 83550; 85025

== ENCOUNTER → 2022-09-21 07:35 | Outpatient (BNVA) | payer MEDICARE, OTHER, SELFPAY | PROVIDERS: PCP Internal Medicine; Visit Provider Specialist | DX: G70.00 Myasthenia gravis without (acute) exacerbation (principal); R20.0 Anesthesia of skin; R20.2 Paresthesia of skin | CPT/HCPCS: 99213 ==

== ENCOUNTER → 2022-10-26 09:17 | Outpatient (BNVA) | payer MEDICARE, OTHER, SELFPAY | PROVIDERS: PCP Internal Medicine; Visit Provider Internal Medicine Cardiovascular Disease | DX: Z45.010 Encounter for checking and testing of cardiac pacemaker pulse generator [battery] (principal) | CPT/HCPCS: 93296 ==

== ENCOUNTER → 2023-01-05 12:35 | Outpatient (BNVA) | payer MEDICARE, OTHER, SELFPAY | PROVIDERS: PCP Internal Medicine; Visit Provider Internal Medicine Cardiovascular Disease | DX: R06.02 Shortness of breath (principal); R25.2 Cramp and spasm; N18.9 Chronic kidney disease, unspecified; I34.0 Nonrheumatic mitral (valve) insufficiency; I27.20 Pulmonary hypertension, unspecified; G70.00 Myasthenia gravis without (acute) exacerbation; I25.10 Atherosclerotic heart disease of native coronary artery without angina pectoris; G47.33 Obstructive sleep apnea (adult) (pediatric) | CPT/HCPCS: 36415; 80048; 83735; 84443; 99214 ==

== ENCOUNTER 2023-03-23 10:41 | Oncology outpatient (recurring) (ONCR) | payer MEDICARE, OTHER, SELFPAY ==
[2023-03-23 12:04] LABS: Basophils # 0.1 10^3/uL (0.0-0.1); Basophils % 0.6 %; Eosinophils % 0.5 %; Lymphocytes # 1.8 10^3/uL (0.8-4.8); Lymphocytes % 22.5 %; Mean Corpuscular HGB Conc 32.3 g/dL (30-55); Mean Corpuscular Hemoglobin 30.6 pg (27-33); Mean Corpuscular Volume 94.8 fl (85-98); Mean Platelet Volume 8.9 fL (7.4-10.4); Monocytes # 0.6 10^3/uL (0.2-0.9); Monocytes % 7.5 %; Neutrophils # 5.36 10^3/uL (1.8-7.7); Neutrophils % 68.1 %; Nucleated Red Blood Cells % 0 %; Platelet Count 326 10^3/cmm (157-399); Red Blood Count 4.64 10^6/uL (3.85-5.65); Red Cell Distribution Width 13.2 % (12.1-15.1); White Blood Count 7.87 10^3/uL (3.29-11.43)
[2023-03-23 12:27] LABS: Alanine Aminotransferase 14 U/L (0-33); Albumin Level 4.3 g/dL (3.5-5.2); Alkaline Phosphatase 88 U/L (35-105); Aspartate Amino Transferase 22 U/L (0-32); Blood Urea Nitrogen 22 mg/dL (8-23); Calcium 9.1 mg/dL (8.5-10.5); Carbon Dioxide 25 mmol/L (22-29); Chloride 105 mmol/L (98-107); Ferritin 17 ng/mL (15-150); Globulin 2.6 g/dL (1.3-4.6); Glucose 103 mg/dL (65-115); Iron 88 ug/dL (37-145); Osmolality Calculated 294 mOsm/kg (285-295); Percent Saturation 38.7 % (20-50); Sodium 140 mmol/L (136-145); Total Bilirubin 0.4 mg/dL (0.15-1.2); Total Iron Binding Capacity 227 mcg/dl; Total Protein 6.9 g/dL (6.6-8.7); Unsaturated Iron Binding 139 ug/dL (112-347)
[2023-03-23 13:29] LABS: Anion Gap 14.5 (5-19); Potassium 4.5 mmol/L (3.5-5.1)
== END 2023-03-26 23:59 | disposition home or self-care (01) ==
PROVIDERS: PCP Internal Medicine; Visit Provider Nurse Practitioner Family
DX: E83.110 Hereditary hemochromatosis (principal); I47.1 Supraventricular tachycardia; Z79.899 Other long term (current) drug therapy
CPT/HCPCS: 36415; 80053; 82728; 83540; 83550; 85025; 99213

== ENCOUNTER → 2023-04-25 11:17 | Outpatient (BNVA) | payer MEDICARE, OTHER, SELFPAY | PROVIDERS: PCP Internal Medicine; Visit Provider Specialist | DX: G70.00 Myasthenia gravis without (acute) exacerbation (principal) | CPT/HCPCS: 99213 ==

== ENCOUNTER → 2023-08-18 15:10 | Outpatient (BNVA) | payer MEDICARE, OTHER, SELFPAY | PROVIDERS: PCP Internal Medicine; Visit Provider Internal Medicine Cardiovascular Disease | DX: I25.10 Atherosclerotic heart disease of native coronary artery without angina pectoris (principal); Z95.0 Presence of cardiac pacemaker; E78.2 Mixed hyperlipidemia; I10 Essential (primary) hypertension; I34.0 Nonrheumatic mitral (valve) insufficiency | CPT/HCPCS: 99214 ==

== ENCOUNTER 2023-09-26 07:34 | Outpatient (CLI) | payer MEDICARE, OTHER, SELFPAY ==
[2023-09-26 08:09] LABS: Basophils # 0.1 10^3/uL (0.0-0.1); Basophils % 0.9 %; Eosinophils # 0.1 10^3/uL (0.0-0.8); Eosinophils % 1.1 %; Hematocrit 41.2 % (36-47); Lymphocytes # 1.5 10^3/uL (0.8-4.8); Lymphocytes % 28.5 %; Mean Corpuscular HGB Conc 32.5 g/dL (30-55); Mean Corpuscular Hemoglobin 30.2 pg (27-33); Mean Corpuscular Volume 92.8 fl (85-98); Monocytes # 0.4 10^3/uL (0.2-0.9); Neutrophils # 3.26 10^3/uL (1.8-7.7); Neutrophils % 60.8 %; Nucleated Red Blood Cells % 0 %; Platelet Count 286 10^3/cmm (157-399); Red Blood Count 4.44 10^6/uL (3.85-5.65); Red Cell Distribution Width 12.8 % (12.1-15.1); White Blood Count 5.37 10^3/uL (3.29-11.43)
[2023-09-26 08:28] LABS: Anion Gap 15.1 (5-19); Blood Urea Nitrogen 12 mg/dL (8-23); Carbon Dioxide 25 mmol/L (22-29); Chloride 107 mmol/L (98-107); Glucose 113 mg/dL (65-115); Osmolality Calculated 297 mOsm/kg (285-295); Potassium 4.1 mmol/L (3.5-5.1); Sodium 143 mmol/L (136-145)
== END 2023-09-26 07:35 | disposition home or self-care (01) ==
LOC: LAB 07:36
PROVIDERS: PCP Internal Medicine; Visit Provider Specialist
DX: G70.00 Myasthenia gravis without (acute) exacerbation (principal)
CPT/HCPCS: 36415; 80048; 85025

== ENCOUNTER → 2023-09-28 08:26 | Outpatient (BNVA) | payer MEDICARE, OTHER, SELFPAY | PROVIDERS: PCP Internal Medicine; Visit Provider Specialist | DX: B37.2 Candidiasis of skin and nail (principal); G70.00 Myasthenia gravis without (acute) exacerbation | CPT/HCPCS: 99214 ==

== ENCOUNTER → 2024-02-22 09:47 | Outpatient (BNVA) | payer MEDICARE, OTHER, SELFPAY | PROVIDERS: PCP Internal Medicine; Visit Provider Internal Medicine Cardiovascular Disease | DX: I25.10 Atherosclerotic heart disease of native coronary artery without angina pectoris (principal); E78.2 Mixed hyperlipidemia; I10 Essential (primary) hypertension; Z95.0 Presence of cardiac pacemaker; I34.0 Nonrheumatic mitral (valve) insufficiency | CPT/HCPCS: 99214 ==

== ENCOUNTER 2024-03-23 07:47 | Oncology outpatient (recurring) (ONCR) | payer MEDICARE, OTHER, SELFPAY ==
[2024-03-22 08:02] LABS: Basophils # 0.1 10^3/uL (0.0-0.1); Basophils % 0.9 %; Eosinophils # 0.1 10^3/uL (0.0-0.8); Eosinophils % 1.4 %; Hematocrit 43.2 % (36-47); Mean Corpuscular HGB Conc 31.9 g/dL (30-55); Mean Corpuscular Hemoglobin 30.6 pg (27-33); Mean Corpuscular Volume 95.8 fl (85-98); Mean Platelet Volume 9.1 fL (7.4-10.4); Monocytes # 0.5 10^3/uL (0.2-0.9); Monocytes % 7.4 %; Neutrophils # 4.31 10^3/uL (1.8-7.7); Neutrophils % 61.4 %; Nucleated Red Blood Cells % 0 %; Platelet Count 299 10^3/cmm (157-399); Red Blood Count 4.51 10^6/uL (3.85-5.65); Red Cell Distribution Width 13.3 % (12.1-15.1); White Blood Count 7.01 10^3/uL (3.29-11.43)
[2024-03-22 08:21] LABS: Alanine Aminotransferase 14 U/L (0-33); Alkaline Phosphatase 80 U/L (35-105); Aspartate Amino Transferase 20 U/L (0-32); Blood Urea Nitrogen 14 mg/dL (8-23); Calcium 8.6 mg/dL (8.5-10.5); Carbon Dioxide 25 mmol/L (22-29); Chloride 104 mmol/L (98-107); Ferritin 25 ng/mL (15-150); Globulin 2.6 g/dL (1.3-4.6); Glucose 111 mg/dL (65-115); Iron 91 ug/dL (37-145); Osmolality Calculated 297 mOsm/kg (285-295); Percent Saturation 44.1 % (20-50); Sodium 143 mmol/L (136-145); Total Bilirubin 0.4 mg/dL (0.15-1.2); Total Iron Binding Capacity 206 mcg/dl; Total Protein 6.6 g/dL (6.6-8.7); Unsaturated Iron Binding 115 ug/dL (112-347)
[2024-03-22 08:36] LABS: Vitamin B12 426 pg/mL (232-1245)
[2024-03-22 08:39] LABS: Anion Gap 17.7 (5-19); Potassium 3.7 mmol/L (3.5-5.1)
== END 2024-03-26 23:59 | disposition home or self-care (01) ==
PROVIDERS: Specialist; PCP Internal Medicine; Visit Provider Nurse Practitioner Family
DX: E83.110 Hereditary hemochromatosis (principal); Z79.899 Other long term (current) drug therapy
CPT/HCPCS: 36415; 80053; 82607; 82728; 83540; 83550; 85025; 99214

== ENCOUNTER → 2024-03-30 07:41 | Outpatient (BNVA) | payer MEDICARE, OTHER, SELFPAY | PROVIDERS: PCP Internal Medicine; Visit Provider Specialist | DX: G70.00 Myasthenia gravis without (acute) exacerbation (principal) | CPT/HCPCS: 99212 ==

== ENCOUNTER → 2024-08-20 09:01 | Outpatient (BNVA) | payer MEDICARE, OTHER, SELFPAY | PROVIDERS: PCP Internal Medicine; Visit Provider Nurse Practitioner Family | DX: I25.10 Atherosclerotic heart disease of native coronary artery without angina pectoris (principal); Z95.0 Presence of cardiac pacemaker; I10 Essential (primary) hypertension; E78.2 Mixed hyperlipidemia; R60.9 Edema, unspecified | CPT/HCPCS: 99214 ==

== ENCOUNTER 2024-09-13 07:42 | Oncology outpatient (recurring) (ONCR) | payer MEDICARE, OTHER, SELFPAY ==
[2024-09-13 09:10] LABS: Basophils % 0.7 %; Eosinophils # 0.1 10^3/uL (0.0-0.8); Eosinophils % 0.9 %; Hematocrit 43.7 % (36-47); Lymphocytes # 1.4 10^3/uL (0.8-4.8); Mean Corpuscular HGB Conc 31.6 g/dL (30-55); Mean Corpuscular Hemoglobin 29.9 pg (27-33); Mean Corpuscular Volume 94.8 fl (85-98); Monocytes # 0.4 10^3/uL (0.2-0.9); Monocytes % 7.6 %; Neutrophils # 3.51 10^3/uL (1.8-7.7); Neutrophils % 65.1 %; Nucleated Red Blood Cells % 0 %; Platelet Count 309 10^3/cmm (157-399); Red Blood Count 4.61 10^6/uL (3.85-5.65); Red Cell Distribution Width 13.2 % (12.1-15.1)
[2024-09-13 09:42] LABS: Alanine Aminotransferase 12 U/L (0-33); Albumin Level 4.1 g/dL (3.5-5.2); Alkaline Phosphatase 87 U/L (35-105); Anion Gap 17.2 (5-19); Aspartate Amino Transferase 18 U/L (0-32); Blood Urea Nitrogen 21 mg/dL (8-23); Calcium 9.3 mg/dL (8.5-10.5); Carbon Dioxide 24 mmol/L (22-29); Chloride 108 mmol/L (98-107); Ferritin 34 ng/mL (15-150); Globulin 2.5 g/dL (1.3-4.6); Glucose 112 mg/dL (65-115); Iron 74 ug/dL (37-145); Osmolality Calculated 304 mOsm/kg (285-295); Percent Saturation 34.4 % (20-50); Potassium 4.2 mmol/L (3.5-5.1); Sodium 145 mmol/L (136-145); Total Bilirubin 0.4 mg/dL (0.15-1.2); Total Iron Binding Capacity 215 mcg/dl; Total Protein 6.6 g/dL (6.6-8.7); Unsaturated Iron Binding 141 ug/dL (112-347)
== END 2024-09-24 23:59 | disposition home or self-care (01) ==
LOC: ONCMED 07:42
PROVIDERS: PCP Internal Medicine; Visit Provider Nurse Practitioner Family
DX: E83.110 Hereditary hemochromatosis (principal); G70.00 Myasthenia gravis without (acute) exacerbation
CPT/HCPCS: 36415; 80053; 82728; 83540; 83550; 85025; 99213

== ENCOUNTER → 2024-10-17 09:04 | Outpatient (BNVA) | payer MEDICARE, OTHER, SELFPAY | PROVIDERS: PCP Internal Medicine; Visit Provider Internal Medicine Cardiovascular Disease | DX: Z45.018 Encounter for adjustment and management of other part of cardiac pacemaker (principal) | CPT/HCPCS: 93296 ==

== ENCOUNTER → 2025-01-16 09:54 | Outpatient (BNVA) | payer MEDICARE, OTHER, SELFPAY | PROVIDERS: PCP Internal Medicine; Visit Provider Internal Medicine Cardiovascular Disease | DX: Z45.018 Encounter for adjustment and management of other part of cardiac pacemaker (principal) | CPT/HCPCS: 93296 ==

== ENCOUNTER → 2025-01-31 14:17 | Outpatient (BNVA) | payer MEDICARE, OTHER, SELFPAY | PROVIDERS: PCP Internal Medicine; Visit Provider Orthopaedic Surgery | DX: S52.502A Unspecified fracture of the lower end of left radius, initial encounter for closed fracture (principal); W19.XXXA Unspecified fall, initial encounter; Z46.89 Encounter for fitting and adjustment of other specified devices; M25.562 Pain in left knee | CPT/HCPCS: 73110 ==

== ENCOUNTER 2025-01-31 15:11 | Outpatient (CLI) | payer MEDICARE, OTHER, SELFPAY | END 2025-01-31 15:12 | disposition home or self-care (01) | LOC: SOT 15:12 | PROVIDERS: PCP Internal Medicine; Visit Provider Orthopaedic Surgery | DX: S52.502A Unspecified fracture of the lower end of left radius, initial encounter for closed fracture (principal); W19.XXXA Unspecified fall, initial encounter; Z46.89 Encounter for fitting and adjustment of other specified devices; M25.562 Pain in left knee | CPT/HCPCS: 25600; 99203 ==

== ENCOUNTER → 2025-02-21 15:04 | Outpatient (BNVA) | payer MEDICARE, OTHER, SELFPAY | PROVIDERS: PCP Family Medicine; Visit Provider Orthopaedic Surgery | DX: S52.592D Other fractures of lower end of left radius, subsequent encounter for closed fracture with routine healing (principal); X58.XXXD Exposure to other specified factors, subsequent encounter | CPT/HCPCS: 73110; 99213 ==

== ENCOUNTER → 2025-02-27 11:14 | Outpatient (BNVA) | payer MEDICARE, OTHER, SELFPAY | PROVIDERS: PCP Family Medicine; Visit Provider Internal Medicine Cardiovascular Disease | DX: I25.10 Atherosclerotic heart disease of native coronary artery without angina pectoris (principal); I47.10 Supraventricular tachycardia, unspecified; E78.2 Mixed hyperlipidemia; I10 Essential (primary) hypertension; I34.0 Nonrheumatic mitral (valve) insufficiency; Z79.82 Long term (current) use of aspirin; Z95.0 Presence of cardiac pacemaker; Z87.891 Personal history of nicotine dependence | CPT/HCPCS: 99214 ==

== ENCOUNTER → 2025-03-14 13:19 | Outpatient (BNVA) | payer MEDICARE, OTHER, SELFPAY | PROVIDERS: PCP Family Medicine; Visit Provider Orthopaedic Surgery | DX: S52.592D Other fractures of lower end of left radius, subsequent encounter for closed fracture with routine healing (principal); X58.XXXD Exposure to other specified factors, subsequent encounter; Z46.89 Encounter for fitting and adjustment of other specified devices | CPT/HCPCS: 73110; 99024; 99213 ==

== ENCOUNTER 2025-03-15 08:12 | Outpatient (CLI) | payer MEDICARE, OTHER, SELFPAY | END 2025-03-15 08:13 | disposition home or self-care (01) | LOC: SPT 08:14 | PROVIDERS: PCP Family Medicine; Visit Provider Orthopaedic Surgery | DX: Z46.89 Encounter for fitting and adjustment of other specified devices (principal); S52.592D Other fractures of lower end of left radius, subsequent encounter for closed fracture with routine healing; X58.XXXD Exposure to other specified factors, subsequent encounter | CPT/HCPCS: L3908 ==

== ENCOUNTER 2025-03-26 07:43 | Oncology outpatient (recurring) (ONCR) | payer MEDICARE, OTHER, SELFPAY ==
[2025-03-26 08:06] LABS: Hematocrit 43.6 % (36-47); Hemoglobin 14.40 g/dL (11.27-16.99); Mean Corpuscular HGB Conc 33.0 g/dL (30-55); Mean Corpuscular Hemoglobin 31.4 pg (27-33); Mean Corpuscular Volume 95.2 fl (85-98); Nucleated Red Blood Cells % 0 %; Platelet Count 320 10^3/cmm (157-399); Red Blood Count 4.58 10^6/uL (3.85-5.65); White Blood Count 5.96 10^3/uL (3.29-11.43)
[2025-03-26 08:21] LABS: Alanine Aminotransferase 11 U/L (0-33); Albumin Level 4.2 g/dL (3.5-5.2); Alkaline Phosphatase 88 U/L (35-105); Anion Gap 16.1 (5-19); Aspartate Amino Transferase 20 U/L (0-32); Blood Urea Nitrogen 18 mg/dL (8-23); Calcium 9.5 mg/dL (8.5-10.5); Carbon Dioxide 24 mmol/L (22-29); Chloride 106 mmol/L (98-107); Ferritin 57 ng/mL (15-150); Globulin 2.8 g/dL (1.3-4.6); Glucose 127 mg/dL (65-115); Iron 128 ug/dL (37-145); Osmolality Calculated 297 mOsm/kg (285-295); Potassium 4.1 mmol/L (3.5-5.1); Sodium 142 mmol/L (136-145); Total Iron Binding Capacity 203 mcg/dl; Total Protein 7.0 g/dL (6.6-8.7); Unsaturated Iron Binding 75 ug/dL (112-347)
== END 2025-03-26 23:59 | disposition home or self-care (01) ==
LOC: ONCMED 07:43
PROVIDERS: PCP Family Medicine; Visit Provider Nurse Practitioner Family
DX: E83.110 Hereditary hemochromatosis (principal)
CPT/HCPCS: 36415; 80053; 82728; 83540; 83550; 85025

== ENCOUNTER 2025-03-29 07:51 | Oncology outpatient (recurring) (ONCR) | payer MEDICARE, OTHER, SELFPAY | END 2025-04-26 23:59 | disposition home or self-care (01) | PROVIDERS: PCP Family Medicine; Visit Provider Nurse Practitioner Family | DX: E83.110 Hereditary hemochromatosis (principal) | CPT/HCPCS: 99213 ==

== ENCOUNTER → 2025-04-02 08:27 | Outpatient (BNVA) | payer MEDICARE, OTHER, SELFPAY | PROVIDERS: PCP Family Medicine; Visit Provider Specialist | DX: G70.00 Myasthenia gravis without (acute) exacerbation (principal); B37.2 Candidiasis of skin and nail; I10 Essential (primary) hypertension; E78.2 Mixed hyperlipidemia; I25.10 Atherosclerotic heart disease of native coronary artery without angina pectoris; I34.0 Nonrheumatic mitral (valve) insufficiency; I27.20 Pulmonary hypertension, unspecified | CPT/HCPCS: 99213 ==

== ENCOUNTER → 2025-04-25 07:46 | Outpatient (BNVA) | payer MEDICARE, OTHER, SELFPAY | PROVIDERS: PCP Family Medicine; Visit Provider Orthopaedic Surgery | DX: S52.592D Other fractures of lower end of left radius, subsequent encounter for closed fracture with routine healing (principal); X58.XXXD Exposure to other specified factors, subsequent encounter | CPT/HCPCS: 73110; 99024 ==

== ENCOUNTER → 2025-05-17 10:41 | Outpatient (BNVA) | payer MEDICARE, OTHER, SELFPAY | PROVIDERS: PCP Family Medicine; Visit Provider Orthopaedic Surgery | DX: M17.11 Unilateral primary osteoarthritis, right knee (principal) | CPT/HCPCS: 20610; 99213; J7325 ==

== ENCOUNTER → 2025-05-27 10:42 | Outpatient (BNVA) | payer MEDICARE, OTHER, SELFPAY | PROVIDERS: PCP Family Medicine; Visit Provider Orthopaedic Surgery | DX: M17.11 Unilateral primary osteoarthritis, right knee (principal) | CPT/HCPCS: 99213 ==